=== PATIENT | female | born 1950 | race Caucasian/White ===

== ENCOUNTER 2023-06-29 20:25 | Emergency (ER) | payer OTHER, SELFPAY ==
[2023-06-29 20:30] VITALS: BP 138/83; PULSE 69; RESP 14; TEMP 36.4; O2SAT 99; BMI 27.0
--- NOTE | 2023-06-29 20:35 | ED_ITS ---
HPI - Abdominal Pain General Time Seen by Provider: 20:35 Date Seen: 06/29/23 Chief Complaint: Abdominal Pain Stated Complaint: Stint removal, extreme pain Time Seen by Provider: 06/29/23 20:35 Source: patient, family and RN notes reviewed Mode of arrival: ambulatory Limitations: no limitations History of Present Illness HPI narrative: 73-year-old female who comes in today after having a stent removed, it sounds like this was in place for ureteral stricture repair. This was removed this morning and the patient signed increased pain this evening along with vomiting. Right lower quadrant and right flank pain. Related Data Home Medications Medication Instructions Recorded Confirmed atorvastatin 20 mg tablet 20 mg PO DAILY 06/29/23 06/29/23 furosemide 20 mg tablet mg PO 06/29/23 metoprolol succinate 25 mg 12.5 mg PO DAILY 06/29/23 06/29/23 tablet,extended release 24 hr omeprazole 20 mg capsule,delayed 20 mg PO 3XD 06/29/23 06/29/23 release potassium chloride 10 mEq meq PO 06/29/23 capsule,extended release rivaroxaban 20 mg tablet (Xarelto) 20 mg PO QPM 06/29/23 06/29/23 Previous Rx's Medication Instructions Recorded cefdinir 300 mg capsule 300 mg PO BID 7 days #14 caps 06/29/23 tamsulosin 0.4 mg capsule (Flomax) 0.4 mg PO DAILY #7 caps 06/29/23 Allergies Allergy/AdvReac Type Severity Reaction Status Date / Time No Known Drug Allergies Allergy Verified 06/29/23 20:28 [facility] Social History Smoking Status: Current every day smoker How often do you have a drink containing alcohol: never AUDIT-C Alcohol total score: 0 Non-prescribed substance use: denies use Exam Narrative: Exam Narrative: General: Well-developed and well-nourished, no acute distress Head: Atraumatic and normocephalic Eyes: Pupils are equal reactive, extraocular motions intact, conjunctiva clear ENT: External nose and ears are normal, posterior pharynx without erythema or exudate Neck: No midline cervical tenderness, full spontaneous range of motion the neck, trachea midline, no adenopathy Heart: Regular rate and rhythm no murmurs or thrills Lungs: Clear to auscultation bilaterally without wheezes or crackles Abdomen: Soft, mild right lower quadrant tenderness, nondistended with active bowel sounds Musculoskeletal: No tenderness, deformity, or edema Neurologic: Awake, alert, and oriented x3, no gross focal neurologic deficits, cranial nerves intact as tested Psych: Mood and affect are appropriate Skin: No rashes Const: Vital Signs, click to edit/add: Vital Signs - 24 hr 06/29/23 20:30 06/29/23 21:53 Temperature 97.5 F L Pulse Rate [Pulse Oximeter] 69 61 Respiratory Rate 14 18 Blood Pressure [Ri ght Upper Arm] 138/83 123/66 Pulse Oximetry 99 96 Oxygen Delivery Me thod Room Air Room Air Course Course ED Course: Patient seen examined, prior records reviewed. Patient with ureteral stent removal today, increased pain and vomiting this evening. No urinary symptoms. Will discuss with urology but this likely represents post stent ureteral spasm, will evaluate for renal failure, sepsis, urinary tract infection. Reevaluation(s) Time of Reevaluation #1: 20:56 Reevaluation #1: Care discussed with Dr. Small, urology who recommends Flomax for spasm, says hydroureter or hydronephrosis after stent removal would not be uncommon and does not recommend specific imaging. Time of Reevaluation #2: 21:44 Reevaluation #2: Labs independently interpreted by me with normal creatinine, reassuring CBC. Urinalysis has not yet been done. CT scan independently interpreted by me demonstrates severe right hydronephrosis but no other acute findings. As discussed with Dr. Small, this is not an unusual finding after surgery and would not be restented or further intervened on. Time of Reevaluation #3: 22:36 Reevaluation #3: Labs independently interpreted by me demonstrate urinalysis with some blood and some white cells although moderate epithelial cells and few bacteria. Rocephin in the emergency department and discharged with Omnicef pending cultures, follow-up with urologist. Vital Signs Vital signs: Initial Vital Signs Temperature 97.5 F L 06/29/23 20:30 Temperature Source Temporal Artery Scan 06/29/23 20:30 Pulse Rate 69 06/29/23 20:30 Pulse Rhythm Regular 06/29/23 20:30 Respiratory Rate 14 06/29/23 20:30 Blood Pressure 138/83 06/29/23 20:30 Blood Pressure Mean 101 06/29/23 20:30 Blood Pressure Position Sitting 06/29/23 20:30 Pulse Oximetry 99 06/29/23 20:30 Oxygen Delivery Method Room Air 06/29/23 20:30 Vital Signs Temperature 97.5 F L 06/29/23 20:30 Pulse Rate 69 06/29/23 20:30 Respiratory Rate 14 06/29/23 20:30 Blood Pressure 138/83 06/29/23 20:30 Pulse Oximetry 99 06/29/23 20:30 Oxygen Delivery Method Room Air 06/29/23 20:30 Temperature 97.5 F L 06/29/23 20:30 Pulse Rate 61 06/29/23 21:53 Respiratory Rate 18 06/29/23 21:53 Blood Pressure 123/66 06/29/23 21:53 Pulse Oximetry 96 06/29/23 21:53 Oxygen Delivery Method Room Air 06/29/23 21:53 MDM - Abdominal Pain Lab Data Labs: Lab Results 06/29/23 06/29/23 Range/Units 20:52 21:06 WBC 7.26 (4.50-11.00) K/uL RBC 4.25 (4.00-5.20) m/uL Hgb 13.0 (12.0-16.0) gm/dL Hct 39.3 (33.0-51.0) % MCV 93 (80-100) fL MCH 31 (26-34) pg MCHC 33 (32-36) gm/dL RDW Coeff of Sam 13.0 (11.5-15.5) % Plt Count 179 (140-440) K/uL Neut % (Auto) 80.5 H (42.0-72.0) % Lymph % (Auto) 12.8 L (20-44) % Garrett % (Auto) 5.8 (0.0-11.0) % Eos % (Auto) 0.6 (0.0-7.0) % Baso % (Auto) 0.3 (0.0-3.0) % Neut # (Auto) 5.80 (1.7-7.0) K/uL Lymph # (Auto) 0.90 (0.90-2.90) K/uL Garrett # (Auto) 0.40 (0.00-0.90) K/UL Eos # (Auto) 0.04 (0.00-0.50) K/uL Baso # (Auto) 0.02 (0.00-0.30) K/uL Abs Immat Gran (auto) 0.00 (0.00-0.30) K/uL Imm/Tot Granulo (auto) 0.0 % Sodium 137 (135-149) mmol/L Potassium 3.8 (3.6-5.1) mmol/L Chloride 104 (96-114) mmol/L Carbon Dioxide 26 (20-32) mmol/L Anion Gap 7 (7-15) mEq/L BUN 18 (7-30) mg/dL Creatinine 1.0 (0.5-1.5) mg/dL Estimated Creat Clear 53.93 Estimated GFR 60 ml/min Glucose 114 (60-115) mg/dL Calcium 10.0 (8.4-10.6) mg/dL Urine Color Yellow (Yellow) Urine Appearance Clear (Clear) Urine pH 5.5 (5.0-8.5) Ur Specific [place] >= 1.030 (1.000-1.030) Urine Protein Negative (Negative) Urine Glucose (UA) Negative (Negative) Urine Ketones Negative (Negative) Urine Blood 2+ A (Negative) Urine Nitrite Negative (Negative) Urine Bilirubin Negative (Negative) Urine Urobilinogen 0.2 (0.2-1.0) Ur Leukocyte Esterase Trace A (Negative) Urine RBC 5-10 A (0-2) Urine WBC 5-10 A (0-5) Ur Squamous Epith Cells Moderate A (None-Few) Urine Bacteria Few A (None) Discharge Plan Discharge Clinical Impression: Acute flank pain, Acute lower UTI, Hydronephrosis of right kidney Patient Disposition: Home, Self-Care Condition: Stable Instructions: Hydronephrosis (ED) Additional Instructions: Call your urologist, Dr. Conrad, in the morning Take antibiotics and Flomax as prescribed, take pain medications as needed Activity Level: Activity as Tolerated Discharge Diet: Regular Prescriptions: New cefdinir 300 mg capsule 300 mg PO BID 7 Days Qty: 14 0RF tamsulosin [Flomax] 0.4 mg capsule 0.4 mg PO DAILY Qty: 7 0RF No Action potassium chloride 10 mEq capsule, extended release PO atorvastatin 20 mg tablet 20 mg PO DAILY omeprazole 20 mg capsule,delayed release(DR/EC) 20 mg PO 3XD furosemide 20 mg tablet PO metoprolol succinate 25 mg tablet extended release 24 hr 12.5 mg PO DAILY Xarelto 20 mg tablet 20 mg PO QPM Follow Up/Referrals: Luci Salter DO [Primary Care Provider] - Stand Alone Forms: [employer] Info Instructions
--- NOTE | 2023-06-29 20:55 | CRLHL7_ITS ---
For Patients: As a result of the Century Cures Act, medical imaging exams and procedure reports are released immediately into your electronic medical record. You may view this report before your referring provider. If you have questions, please contact your health care provider. INDICATION: Flank and right lower quadrant pain, recent urologic stent. TECHNIQUE: CT abdomen and pelvis without contrast. COMPARISON: None. FINDINGS: Limited evaluation of the intra-abdominal solid organs without IV contrast. Lower chest: Unremarkable. Liver: Normal in size and attenuation. No suspicious masses. Gallbladder and bile ducts: Status post cholecystectomy. No abnormal intra or extrahepatic biliary ductal dilatation. Pancreas: Unremarkable. No mass or inflammation. Spleen: Normal in size. No masses. Adrenal glands: Normal in size. No nodules. Kidneys: Severe right hydronephrosis. There is narrowing at the UPJ with near normal caliber right ureter. No definite renal or ureteral stones identified. Left kidney is unremarkable. GI tract: Partial right hemicolectomy. No bowel obstruction. Vasculature: Abdominal aorta is normal in caliber. Moderate to severe calcific atherosclerosis. Lymph nodes: No lymphadenopathy. Peritoneum/Abdominal Wall: Unremarkable. No sign of mass or infiltration. No free air or significant free fluid. Pelvis: Foci of gas in the nondependent portion of the bladder likely iatrogenic catheter insertion. Correlate with history. Uterus is absent. Bones: Diffuse demineralization of the visualized bones. Multilevel degenerative changes throughout the spine. IMPRESSION: Severe right hydronephrosis with narrowing at the right UPJ, likely the site of obstruction. Essentially normal caliber right ureter. Status post cholecystectomy Please note that all CT scans at this facility use dose modulation, iterative reconstruction, and/or weight-based dosing when appropriate to reduce radiation dose to as low as reasonably achievable. Dictated by Manuela Lutz MD @ 06/29/2023 9:36:58 PM (Electronically Signed)
[2023-06-29] MEDS: KETOROLAC 15 MG/ML inj IVP (21:04)
[2023-06-29] MEDS: ONDANSETRON 2 MG/ML inj 4 MG IVP (21:04)
[2023-06-29] MEDS: TAMSULOSIN HCL 0.4 MG CAPSULE PO (21:12)
[2023-06-29 21:14] LABS: Basophils Absolute Auto 0.02 K/uL (0.00-0.30); Basophils Percent Auto 0.3 % (0.0-3.0); Eosinophils Absolute Auto 0.04 K/uL (0.00-0.50); Eosinophils Percent Auto 0.6 % (0.0-7.0); Hematocrit 39.3 % (33.0-51.0); Lymphocytes Percent Auto 12.8 % (20-44); Mean Corpuscular HGB Conc 33 gm/dL (32-36); Mean Corpuscular Hemoglobin 31 pg (26-34); Mean Corpuscular Volume 93 fL (80-100); Monocytes Percent Auto 5.8 % (0.0-11.0); Neutrophils Percent Auto 80.5 % (42.0-72.0); Platelet Count* 179 K/uL (140-440); Red Blood Count 4.25 m/uL (4.00-5.20); White Blood Count* 7.26 K/uL (4.50-11.00)
[2023-06-29 21:20] LABS: Slide Review Reflex No
[2023-06-29 21:25] LABS: Chloride* 104 mmol/L (96-114)
[2023-06-29 21:26] LABS: Potassium* 3.8 mmol/L (3.6-5.1); Sodium* 137 mmol/L (135-149)
[2023-06-29 21:28] LABS: Est. Creatinine Clearance* 53.93; Estimated Glomerular Filt Rate 60 ml/min
[2023-06-29 21:29] LABS: Anion Gap 7 mEq/L (7-15); Blood Urea Nitrogen* 18 mg/dL (7-30); Carbon Dioxide* 26 mmol/L (20-32); Glucose* 114 mg/dL (60-115)
[2023-06-29 21:40] LABS: Appearance Urine Clear (Clear); Bilirubin Urine Negative (Negative); Blood Urine 2+ (Negative); Color Urine Yellow (Yellow); Glucose Urine Negative (Negative); Ketones Urine Negative (Negative); Leukocyte Esterase Urine Trace (Negative); Nitrite Urine Negative (Negative); Protein Urine Negative (Negative); Specific Gravity Urine >= 1.030 (1.000-1.030); Urobilinogen Urine 0.2 (0.2-1.0); pH Urine 5.5 (5.0-8.5)
[2023-06-29 21:53] VITALS: BP 123/66; PULSE 61; RESP 18; O2SAT 96
[2023-06-29 21:58] LABS: Bacteria Urine Few; Squamous Epithelial Cell Urine Moderate (None-Few)
[2023-06-29] MEDS: cefTRIAXone 1 GM in 0.9 % SODIUM CHLORIDE Mini-bag 100 ML IVPB (22:48)
== END 2023-06-29 23:33 | disposition home or self-care (01) ==
PROVIDERS: Emergency Provider Family Medicine; PCP Family Medicine
DX: R10.9 Unspecified abdominal pain (principal); N39.0 Urinary tract infection, site not specified; N13.30 Unspecified hydronephrosis; N20.0 Calculus of kidney
CPT/HCPCS: 36415; 74176; 80048; 81001; 85025; 87086; 87186; 96365; 96375; 99284; 99285; A9270; J0696; J1885; J2405

== ENCOUNTER 2023-12-05 10:02 | Outpatient (CLI) | payer OTHER, SELFPAY ==
--- NOTE | 2023-12-05 11:06 | W.ANESCHARGE ---
Anesthesia Charges Start Date/Time Anesthesia Start Date: 12/05/23 Anesthesia Start Time: 11:33 Stop Date/Time Anesthesia Stop Date: 12/05/23 Anesthesia Stop Time: 12:24 Summary Extremes of Age - Over 70 or under 1: MDA
--- NOTE | 2023-12-05 12:21 | W.ANESCHARGE ---
Anesthesia Charges Start Date/Time Anesthesia Start Date: 12/05/23 Anesthesia Start Time: 11:33 Stop Date/Time Anesthesia Stop Date: 12/05/23 Anesthesia Stop Time: 12:24
== END 2023-12-05 10:03 | disposition home or self-care (01) ==
LOC: OP CLINIC 10:03
PROVIDERS: PCP Family Medicine; Visit Provider Internal Medicine Gastroenterology
DX: Z85.038 Personal history of other malignant neoplasm of large intestine (principal); K63.5 Polyp of colon; K57.30 Diverticulosis of large intestine without perforation or abscess without bleeding; Z98.0 Intestinal bypass and anastomosis status
CPT/HCPCS: 00811; 45380; 45381; 45385; 88305; 99100; J2704

== ENCOUNTER 2024-02-27 10:32 | Outpatient (CLI) | payer OTHER, SELFPAY ==
--- OUTSIDE RECORDS SUMMARY | 2024-02-27 10:38 | XMS_ITS | Clinical Summary ---
Author Organization [facility] Address [address] [place] [address] Care Team Providers Care Interpretive Program Coordinator Name Role Phone Unassigned, Provider Primary Care Provider Unava ilable Source Comments You are receiving this document as you are listed as the primary care provider,follow-up provider, or the patient has been referred to you for consultation.This is in compliance with the Medicare andMedicaid EHR Incentive Program,which states Providers who transition their patient to another setting of careor provider of care or refers their patient to another provider of care shouldprovide summary care record for each transition of care or referral. webtide Medications Medication Sig Dispensed Refills Start Date End Date Status omeprazole (PRILOSEC) 20 MG capsule Take 20 mg by mouth. 05/05/2017 Active multivitamin (THERAGRAN) tablet Take 1 Tab by mouth. 05/05/2017 Active HYDROcodone-acetaminop hen (NORCO) 5-325 MG tablet Take 1 Tab by mouth every 6 hours as needed for Pain. 10 Tab 06/10/2017 Active ibuprofen (MOTRIN) 600 MG tablet Take 1 Tab by mouth every 6 hours as needed for Pain. 30 Tab 1 06/10/2017 Active amoxicillin (AMOXIL) 500 MG capsule Take 1 Cap by mouth three times a day. 21 Cap 06/10/2017 Active HYDROcodone-acetaminop hen (NORCO) 5-325 MG tablet Take 1 Tab by mouth every 6 hours as needed for Pain. 10 Tab 11/07/2017 Active ibuprofen (MOTRIN) 600 MG tablet Take 1 Tab by mouth every 6 hours as needed for Pain. 30 Tab 1 11/07/2017 Active Immunizations Name Administration Dates Next Due Influenza Vaccine (3+years) ([facility]) 009 Social History Tobacco Use Types Packs/Day Years Used Date Smoking Tobacco: Heavy Smoker Cigarettes 1 49 Smokeless Tobacco: Never Comments:12 cigarettes per d ay Alcohol Use Standard Drinks/Week Comments Yes 1 (1 standard drink = 0.6 oz pur e alcohol) once in a blue belcher Sex and Gender Information Value Date Recorded Sex Assigned at Not on file Gender Identity Not on file Sexual Orientation Not on file Last Filed Vital Signs Vital Sign Reading Time Taken Comments Blood Pressure 133/64 11/07/2017 11:59 AM [employer] Pulse 69 11/07/2017 11:59 AM [employer] Temperature - - Respiratory Rate - - Oxygen Saturation 97% 11/07/2017 11:59 AM [employer] Inhaled Oxygen Concentration - - Weight 64.4 kg (142 lb) 06/10/2017 10:21 AM CDT Height 176.5 cm (5' 9.5) 06/10/2017 10:21 AM CD T Body Mass Index 20.67 06/10/2017 10:21 AM CDT Plan of Treatment Health Maintenance Due Date Last Done Comments Colon Cancer Screening Plan Due 1950 Hep C Screening (Preventive Services) 1950 Medicare Welcome Visit 1950 Mammogram 1950 Cholesterol 02/09/1997 Dexa 02/09/2017 COVID-19 Vaccine ( season) 2023 12/26/2020, 12/05/2020 Influenza (Season Ended) 2024 020, 10/18/2019, 06/02/2018, Additional history exists DTaP/Tdap/Td (2 - Tdap) 08/01/2027 08/01/2017 Pneumococcal 65+ Yrs Completed 06/02/2018, 05/05/20 17 Zoster/Shingles Completed 07/26/2019, 05/11/2019 HepA Aged Out No longer eligi ble based on patient's age to complete this topic HepB Aged Out No longer eligi ble based on patient's age to complete this topic Hib Aged Out No longer eligi ble based on patient's age to complete this topic IPV (Polio) Aged Out No longer eligi ble based on patient's age to complete this topic MCV4 Aged Out No longer eligi ble based on patient's age to complete this topic Care Teams Interpretive Program Coordinator Relationship Specialty Start Date End Date Unassigned, Provider [address] [place] [address] PCP - General 08/28/09
--- OUTSIDE RECORDS SUMMARY | 2024-02-27 10:38 | XMS_ITS | Clinical Summary ---
Author Organization [facility] Address [place], [place] [address] Care Team Providers Care Rehabilitation Case Coordinator Name Role Phone Luci Salter Primary Care Provider Aleksey Lezama MD Unavailable [phone] Saranya Mar Unavailable [phone] Allergies No known active allergies Medications Medication Sig Dispensed Refills Start Date End Date Status omeprazole (PRILOSEC) 20 mg Delayed-Release capsuleIndications: PUD (peptic ulcer disease),Gastroesop hageal reflux disease, unspecified whether esophagitis present Take 1 Capsule (20 mg) by mouth once daily before a meal. 90 Capsule 3 04/06/2023 Active furosemide (LASIX) 20 mg tabletIndications:A cute systolic congestive heart failure (HC) Take 1 Tablet (20 mg) by mouth every morning. May also take 1 Tablet (20 mg) once daily if needed (leg swelling or congestion). 90 Tablet 3 09/05/2023 Active potassium chloride (MICRO-K) 10 mEq Controlled-release capsuleIndications: On potassium wasting diuretic therapy Take 2 Capsules (20 mEq) by mouth once daily with a meal. 180 Capsule 3 09/05/2023 Active rivaroxaban (Xarelto) 20 mg tabletIndications:N ew onset a-fib (HC) TAKE 1 TABLET (20 MG) BY MOUTH ONCE DAILY WITH EVENING MEAL. Strength: 20 mg 90 Tablet 3 09/05/2023 Active atorvastatin (LIPITOR) 20 mg tabletIndications:C oronary artery calcification TAKE 1 TABLET BY MOUTH EVERY DAY 90 Tablet 2 08/14/2023 Active umeclidinium-vilant Gertrude (Anoro Ellipta) 62.5-25 mcg/actuation inhalerIndications: Chronic obstructive pulmonary disease, unspecified COPD type (HC) Inhale 1 Puff by mouth once daily. Discard inhaler 6 weeks after opening or when the counter reads '0' (after all blisters have been used), whichever comes first. 60 Each 10/27/2023 Active albuterol HFA (PRO-AIR; VENTOLIN; PROVENTIL) 90 mcg/actuation inhalerIndications: Chronic obstructive pulmonary disease, unspecified COPD type (HC) Inhale 2 Puffs by mouth every 4 hours if needed for Shortness of Breath 1st choice. 1 Each 11 10/27/2023 Active multivit with iron,minerals (MULTIVITAMIN AND MINERALS ORAL) Take by mouth. Active escitalopram oxalate (LEXAPRO) 10 mg tabletIndications:A djustment reaction with anxiety and depression Take 1 Tablet (10 mg) by mouth every morning. 90 Tablet 12/22/2023 Active atorvastatin (LIPITOR) 20 mg tablet Take by mouth. 06/29/2023 Active metoprolol succinate (Toprol XL) 25 mg Sustained-Release tabletIndications:T achycardia-induced cardiomyopathy (HC),Paroxysmal atrial fibrillation (HC) Take 0.5 Tablets (12.5 mg) by mouth once daily. 45 Tablet 3 09/05/2023 4 Discontinue d(*Med complete/Re gimen complete/Le cathy of care change) Active Problems Problem Noted Date Diagnosed Date Hydronephrosis of right kidney 11/25/2022 Fatty liver 11/25/2022 Chronic obstructive pulmonary disease 10/11/2022 Congestive heart failure 01/25/2022 Postprocedural pneumothorax 09/05/2021 Pleural effusion on left 09/04/2021 Atrial fibrillation 09/03/2021 Acute systolic congestive heart failure 09/03/20 21 New onset a-fib 08/10/2021 Dyslipidemia 08/10/2021 Malignant neoplasm of colon 10/08/2020 Overview: S/p Laparoscopic Colectomy Right With Anastomosis on 09/03/2020 for Malignant Neoplasm Of Colon (HCC). Surgeon: Dr. Jesús Dooley MD at [place]. Recommended to repeat colonoscopy in 1 year and if negative, colonoscopy 3 years after that. History of colon cancer, stage I 10/08/2020 Gastroesophageal reflux disease without esophagi tis 08/14/2020 Hyperlipidemia 08/14/2020 Malignant neoplasm of transverse colon 0 Overview: Colonoscopy 07/25/2020 colon cancer arising within a serrated adenoma, multiple polyps, recommend surgery, colonoscopy 1 year after surgery Colonoscopy hyperplastic rectal polyp, no residual precancerous polyp in the rectum, ischemic colitis in the descending colon, severe diverticular disease, tattoos placed at the previously resected polyp in the transverse colon as well as the rectal polyp area, patient will be referred to [facility] colorectal surgery for further care and probable surgery, follow-up colonoscopy pending [facility] review Colonoscopy 11/2023 Large SSA, TA, repeat in 3 years Hyperopia of both eyes with astigmatism and pres byopia 05/17/2019 Nuclear senile cataract of both eyes 05/17/2019 Coronary artery calcification 05/14/2019 PUD (peptic ulcer disease) 05/14/2019 Pulmonary nodules/lesions, multiple 08/16/2018 Tobacco abuse 08/16/2018 Osteopenia of multiple sites 06/08/2017 Overview: DEXA 06/26/20. T-scores AP: -1.5, LFN -0.9, RFN -1.3. FRAX 14.2%. Recommend basic bone health and repeat in 3-5 years. DEXA 05/24/23: T-scores AP: -0.5, LFN -1.1, RFN -1.7. FRAX 17.4, 4.6%. Recommend basic bone health and repeat in 3-5 years. 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 Chris Sandoval at [facility]) 02/23/2024 3:00 PM CDT Office Visit [facility] [address] [place] [address] Chris Sandoval MD Consult (Diarrhea continues, anti-diarrheal helpful, smelly burps) 02/23/2024 Travel 02/18/2024 Travel 01/23/2024 2:00 PM CDT Ancillary Procedure [facility] [address] [place] [id number] 01/23/2024 Telephone [facility] [address] [place] [address] Bigg Crain MD Results 01/23/2024 Travel 01/17/2024 Telephone [facility] [address] [place] [address] Bigg Crain MD Results 01/16/2024 3:25 PM CDT Office Visit [facility] [address] [place] [address] Bigg Crain MD Dizziness (Seems to be happening more frequently but nothing certain brings it on.); Diarrhea (equipment operator intermodal yard issues) 01/16/2024 Travel 01/13/2024 Travel 12/26/2023 1:15 PM CDT Orders Only [facility] [address] [place] [address] Lab, [facility] 12/22/2023 10:50 AM CDT Office Visit [facility] [address] [place] [address] Luci Salter DO Diarrhea (Over a month); Dizziness (When going from sitting to standing quickly) 12/21/2023 Travel 12/06/2023 Telephone [facility] [address] [place] [address] Chris Sandoval MD Questions (Regarding Metal card) 12/05/2023 10:15 AM CDT Office Visit [facility] [address] [place] [address] Chris Sandoval MD 12/05/2023 Orders Only [facility] Scanner 1 scan: (1-Ord) DOSWELL 12/05/2023 Lab Requisition [facility] [phone] Chris Sandoval MD 12/01/2023 3:00 PM JET INSPECTOR Preop Visit [facility] [address] [place] [address] Luci Salter DO Preoperative Exam 11/30/2023 Travel 11/29/2023 Telephone [facility] [address] [place] [address] Chris Sandoval MD Appointment 11/29/2023 Telephone [facility] [address] [place] [address] Chris Sandoval MD Medication Management 11/28/2023 Refill [facility] [address] [place] [address] Chris Sandoval MD Refill Request ( polyethylene glycol-electrolyte and Zofran to be sent to her preferred pharmacy at [facility] in [place].) 11/27/2023 Travel from Last 3 Months Immunizations Name Administration Dates Next Due AMB Influenza, IIV3 (Age >=3 years)(Flu Clinic Only) 07/04/2012,07/14/2010,07/26/2008 COVID-19 vaccine (Cytonics-Bio NTech 30mcg/0.3mL) 12YO+ BIVALENT PF, MDV 06/29/2022 COVID-19 vaccine (Pfizer-Bio NTech 30mcg/0.3mL) 12YO+ MARYAM-SUCROSE PF, MDV 04/23/2022 COVID-19 vaccine (Cytonics-Bio NTech 30mcg/0.3mL) PF, MDV 12/26/2020,12/05/2020 Influenza Virus, Unspecified 09/03/2009 Influenza, High-dose Inactivated 08/01/2017 Influenza, IIV3 (Age >=3 years) 08/21/2014 Influenza, IIV4 06/04/2016 Influenza, Inactivated AIIV4 (Age 65+ Years) Preserv Free 07/14/2023,06/24/2022,06/11/2021,06/05 Influenza, Inactivated IIV3 (Age 65+ Years) Preserv Free 10/18/2019,06/02/2018 Pneumococcal Poly,23-Valent (Pneumovax) 06/02/2018 Pneumococcal conj 13-Valent (Prevnar 13) 05/05/2017 RSV, Bivalent Vaccine Recons tituted (Abrysvo 120MCG/0.5mL) 08/04/2023 Tdap 08/01/2017 Zoster (Shingrix-RZV, recombinant) 07/26/2019, Family History Medical History Relation Name Comments Cancer-colon Brother Mauro Diabetes Daughter Cancer Father lung Heart attack Father Cancer-colon Sister 1 61. diagnosed.n Other Sister 1 MSA Cancer-breast No Family History Relation Name Status Comments Brother Mauro (Age 70) colon canc er Daughter Father Mother Sister 1 Sister 2 Christiane (Age 61) [facility] Social History Tobacco Use Types Packs/Day Years Used Date Smoking Tobacco: Every Day Cigarettes 0.7 54.4 Started: [birth year]/26/1969 Passive Smoke Exposure: Never Smokeless Tobacco: Never Tobacco Cessation:Ready to Q uit: No; Counseling Given: No Alcohol Use Standard Drinks/Week Comments Not Currently 0 (1 standard drink = 0.6 oz pur e alcohol) Very rare PHQ-2 Answer Date Recorded PHQ-2 TOTAL SCORE 0 11/07/2023 Social Connections Answer Date Recorded Frequency of Communication with Friends and Fami ly 0 05/27/2023 Financial Resource Strain Answer Date R ecorded Difficulty of Paying Living Expenses 3 05/27/2023 Difficulty of Paying Living Expenses Not on file 05/27/2023 Food Insecurity Answer Date Recorded Worried About Running Out of Food in the Last Ye ar 1 05/27/2023 Transportation Needs Answer Date Record ed Lack of Transportation (Medical) 1 05/27/2023 Housing Stability Answer Date Recorded Unable to Pay for Housing in the Last Year 1 05/27/2023 Sex and Gender Information Value Date Recorded Sex Assigned at Female 10/07/2020 9:06 AM JET INSPECTOR Gender Identity Female 10/07/2020 9:06 AM JET INSPECTOR Sexual Orientation Straight 10/07/2020 9: 06 AM JET INSPECTOR Obstetrics History Last Filed Vital Signs Vital Sign Reading Time Taken Comments Blood Pressure 112/68 02/24/2024 8:53 AM CDT Pulse 68 02/24/2024 8:53 AM CDT Temperature 36.8 ??C (98.3 ??F) 12/22/2023 1 0:52 AM CDT Respiratory Rate 22 10/27/2023 1:05 PM JET INSPECTOR Oxygen Saturation 97% 02/23/2024 2:5 9 PM CDT Inhaled Oxygen Concentration - - Weight 81.8 kg (180 lb 6.4 oz) 02/24/20 8:53 AM CDT with shoes Height 172.7 cm (5' 8) 02/24/2024 8:53 AM CDT Body Mass Index 27.43 02/24/2024 8:53 AM CDT Plan of Treatment Upcoming Encounters Date Type Department Care Team (Late st Contact Info) Description 02/27/2024 10:45 AM CDT Office Visit [facility] [address] [place] [address] Chris Sandoval MD [address] [place] [address] Arrived Health Maintenance Due Date Last Done Comments COVID-19 vaccine series ( season) 2023 07/21/2023, 06/29/2022, 04/23/2022, Additional history exists Medicare Wellness for age 65+ 04/06/2024, 04/05/2022, 03/27/2021, Additional history exists Low Dose CT (for lung CA) ag e 50-80 05/24/2024 05/24/2023, 03/04/2022, 09/03/2021, Additional history exists Mammogram for age 45-75 05/24/2024 05/24/20 23, 05/13/2022, 04/01/2021, Additional history exists Influenza for age 65+ 05/27/2024 07/14/2023 , 06/24/2022, 06/11/2021, Additional history exists Depression screening for age 12+ 11/09/2024 11/09/2023, 11/07/2023, 10/07/2023, Additional history exists BMI (ht and wt on same day) for age 18+ 02/23/2025 02/24/2024, 12/01/2023, 10/27/2023, Additional history exists Colonoscopy through age 75 12/04/202612/04, 12/05/2023, 12/05/2023, Additional history exists Tetanus booster 08/01/2027 08/01/2017 Lipids for age 45-75 04/06/2028 04/06/2023, 04/05/2022, 03/27/2021, Additional history exists Tdap Completed 08/01/2017 Pneumococcal series for age 65+ Completed 8, 05/05/2017 Hepatitis C screening for ag e 18-79 Completed 05/14/2019 Zoster (shingles) series for age 50+ Completed 07/26/2019, 05/11/2019 DEXA/DXA scan for age 65+ Completed 2022, 06/26/2020, 06/02/2017 Medical Devices Implanted Type Area Instructional Technology Director Device Identifier Shelf Expiration Date Model / Serial / Lot Stent Uret 6fr 24cm [employer] [place] W/O Guidewire - [id number] Implanted:Qty: 1 on 06/06/2023 by Ron Conrad MD at [facility] Right: [employer] 03/30/2024 [facility] / [id number] Procedures Procedure Name Priority Date/Time Associated Diagnosis Comments ESOPHAGOGASTRODUODENOSCOPY Routine 02/26 8:03 AM CDT Belching Chronic diarrhea History of gastric ulcer POTASSIUM Routine 02/24/2024 9:27 AM CDT Hypokalemia US CAROTID DUPLEX BILATERAL Routine 12/26 2:28 PM CDT Dizziness BASIC METABOLIC PANEL Routine 01/16/2024 4:19 PM CDT Dizziness [facility] 84 Routine 12/26/2023 11:15 AM CDT Chronic diarrhea TISSUE TRANSGLUTAMINASE IGA Routine 11/25 11:38 AM CDT Chronic diarrhea TSH WITH REFLEX Routine 12/22/2023 11:38 AM CDT Chronic diarrhea Generalized anxiety disorder CELIAC CASCADE PANEL Routine 12/22/2023 11:38 AM CDT Chronic diarrhea LAB TRACKING EVENT Routine 12/05/2023 12:00 PM CDT PATH TISSUE EXAM Routine 12/05/2023 12:00 PM CDT COLONOSCOPY SCREENING Routine 12/05/2023 8:07 AM CDT History of colon cancer Diarrhea, unspecified type SCAN-COLONOSCOPY 12/05/2023 12:[address] CHEST SCREENING LOW DOSE WO CONTRAST Routine 05/24/2023 12:10 PM CDT Encounter for screening for lung cancer Smoker XR MAMMO YVON BILAT SCREEN Routine 05/24 11:39 AM CDT Visit for screening mammogram XR DXA BONE DENSITY 2 SITES AXIAL Routine 05/24/2023 11:26 AM CDT Osteopenia of multiple sites LIPID PANEL W REFLEX MEASURE D LDL Routine 04/06/2023 12:33 PM CDT Dyslipidemia ANTI HCV Routine 05/14/2019 3:02 PM CDT Need for hepatitis C screening test from Last 3 Months or Most Recently Relevant to Health Maintenance Results * POTASSIUM (02/24/2024 9:27 AM CDT) POTASSIUM 4.8 3.5 - 5.1 mmol/L 02/24/2024 2:30 PM CDT [facility] Blood BLOOD SPECIMEN / Unknown Venipuncture / Unknown 02/24/2024 9:27 AM CDT 02/24/2024 9:27 AM CDT Alexander Johns MD CHEMISTRY [facility] [address] [place] [address], * US CAROTID DUPLEX BILATERAL (01/23/2024 2:28 PM CDT) Anatomical Region Laterality Modality CAROTID, NECK Ultrasound 01/23/2024 2:28 PM CDT Impressions 01/23/2024 2:32 PM CDT 1. ??Moderate plaque formation, velocities consistent with less than 50% stenosis in the right internal carotid artery. 2. ??Moderate plaque formation, velocities consistent with less than 50% stenosis in the left internal carotid artery. 3. ??Flow within the vertebral arteries is antegrade. Narrative 01/23/2024 2:32 PM CDT For Patients: As a result of the Century Cures Act, medical imaging exams and procedure reports are released immediately into your electronic medical record. You may view this report before your referring provider. If you have questions, please contact your health care provider. EXAM: US CAROTID DUPLEX BILATERAL LOCATION: [facility] DATE: 01/23/2024 INDICATION: Dizziness COMPARISON: None. TECHNIQUE: Duplex exam performed utilizing 2D story-scale imaging, Doppler interrogation with color-flow and spectral waveform analysis. The percent diameter stenosis is determined using NASCET criteria and Society of Radiologists in Ultrasound Consensus Criteria. FINDINGS: RIGHT: Moderate plaque at the bifurcation. The peak systolic velocity in the ICA is less than 130 cm/sec, consistent with less than 50% stenosis. Normal velocities in the ECA. Antegrade flow within the vertebral artery. Normal multiphasic waveforms in the subclavian artery. LEFT: Moderate plaque at the bifurcation. The peak systolic velocity in the ICA is less than 130 cm/sec, consistent with less than 50% stenosis. Normal velocities in the ECA. Antegrade flow within the vertebral artery. Normal multiphasic waveforms in the subclavian artery. VELOCITY CHART: CCA ?? Right: 65/19 cm/s ?? Left: 65/20 cm/s ICA ?? Right: 127/33 cm/s ?? Left: 73/24 cm/s ECA ?? Right: 143/23 cm/s ?? Left: 85 cm/s ICA/CCA PSV Ratio ?? Right: 1 ?? Left: 1.1 Procedure Note Ronel Olivera MD - 01/23/2024 For Patients: As a result of the Cures Act, medical imagingexams and procedure reports are released immediately into your electronicmedical record. You may view this report before your referring provider.If you have questions, please contact your health care provider. EXAM: US CAROTID DUPLEX BILATERAL LOCATION: [facility] DATE: 01/23/2024 INDICATION: Dizziness COMPARISON: None. TECHNIQUE: Duplex exam performed utilizing 2D story-scale imaging, Dopplerinterrogation with color-flow and spectral waveform analysis. The percentdiameter stenosis is determined using NASCET criteria and Society ofRadiologists in Ultrasound Consensus Criteria. FINDINGS: RIGHT: Moderate plaque at the bifurcation. The peak systolic velocity inthe ICA is less than 130 cm/sec, consistent with less than 50% stenosis.Normal velocities in the ECA. Antegrade flow within the vertebral artery.Normal multiphasic waveforms in the subclavian artery. LEFT: Moderate plaque at the bifurcation. The peak systolic velocity inthe ICA is less than 130 cm/sec, consistent with less than 50% stenosis.Normal velocities in the ECA. Antegrade flow within the vertebral artery.Normal multiphasic waveforms in the subclavian artery. VELOCITY CHART: CCA Right: 65/19 cm/s Left: 65/20 cm/s ICA Right: 127/33 cm/s Left: 73/24 cm/s ECA Right: 143/23 cm/s Left: 85 cm/s ICA/CCA PSV Ratio Right: 1 Left: 1.1 IMPRESSION: 1. Moderate plaque formation, velocities consistent with less than 50%stenosis in the right internal carotid artery. 2. Moderate plaque formation, velocities consistent with less than 50%stenosis in the left internal carotid artery. 3. Flow within the vertebral arteries is antegrade. Bigg Crain MD US * (ABNORMAL) BASIC METABOLIC PANEL (01/16/2024 4:19 PM CDT) SODIUM 135(L) 136 - 145 mmol/L 01/17/2024 3:31 AM T [facility] POTASSIUM 4.9 3.5 - 5.1 mmol/L 01/17/2024 3:31 AM T [facility] CHLORIDE 101 98 - 107 mmol/L 01/17/2024 3:31 AM [facility] CO2,TOTAL 26 22 - 29 mmol/L 01/17/2024 3:31 AM [facility] ANION GAP 8 5 - 18 01/17/2024 3:31 AM T [facility] GLUCOSE 79 70 - 99 mg/dL 01/17/2024 3:31 AM [facility] CALCIUM 10.4(H) 8.8 - 10.2 mg/dL 01/17/2024 3:31 AM [facility] BUN 8 8 - 23 mg/dL 01/17/2024 3:31 AM [facility] CREATININE 0.93(H) 0.50 - 0.90 mg/dL 01/17/2024 3:31 AM [facility] BUN/CREAT RATIO 9(L) 10 - 20 3:31 AM [facility] eGFR 66(L) >90 mL/min/1.7 3m2 01/17/2024 3:31 AM [facility] Comment:As of 2021, eG FR is calculated by the CKD-EPI creatinine equation without race adjustment. ??eGFR can be influenced by muscle mass, exercise, and diet. ??The reported eGFR is an estimation only and is only applicable if the renal function is stable. Blood BLOOD SPECIMEN / Unknown Venipuncture / Unknown 01/16/2024 4:19 PM CDT 01/16/2024 4:19 PM CDT Bigg Crain MD CHEMISTRY Performing Organization Address [facility] Co de Phone Number [facility] [address] [address], * PANCREATIC ELASTASE FECAL (12/26/2023 11:15 AM CDT) Pancreatic Elast Fecal 482 >200 ug Elast./g 01/02/2024 3:[address] [facility] Comment: ? Severe Pancreatic Insufficiency: ?<100 ? Moderate Pancreatic Insufficiency: ?? 100 - 200 ? Normal: ? >200 Stool STOOL SPECIMEN / Unknown Non-Blood / Unknown 12/26/2023 11:15 AM CDT 12/26/2023 11:52 AM CDT Narrative [facility] ([facility]) - 01/02/2024 3:06 AM CDT Performed at: ??[address] ??[id number] Pipe Bowls Paint Trimmer: Henrik Tong MD, Phone: ??[phone] Luci Salter DO MICROBIOLOGY Performing Organization Address [facility] Co de Phone Number [facility] ([facility]) [address] [place] [id number], * CELIAC CASCADE PANEL (12/22/2023 11:38 AM CDT) IGA 443.56 84.50 - 499.00 mg/dL 12/23/2023 7:47 AM CDT [facility] Blood BLOOD SPECIMEN / Unknown Venipuncture / Unknown 12/22/2023 11:38 AM CDT 12/22/2023 11:38 AM CDT Narrative [facility] - 12/23/2023 7:47 AM CDT Reflexed to Tissue Transglutaminase IgA Luci Salter DO SEND OUTS Performing Organization Address [facility]/ZIP Co de Phone Number [facility] [address] [place] [address], * TSH WITH REFLEX (12/22/2023 11:38 AM CDT) TSH 0.88 0.27 - 4.20 uIU/mL 12/22/2023 6:16 PM CDT [facility] Blood BLOOD SPECIMEN / Unknown Venipuncture / Unknown 12/22/2023 11:38 AM CDT 12/22/2023 11:38 AM CDT Narrative [facility] - 12/22/2023 6:16 PM CDT In Adults, TSH values between 5.00 and 10.00 uIU/ml do not necessarily indicate the presence of Hypothyroidism. Correlation with clinical findings such as presence of goiter and/or Thyroperoxidase (TPO) Antibody may be helpful. For more information please refer to ZEYAD 2004; 291: 228-238. Luci Salter DO CHEMISTRY Performing Organization Address [facility] Co de Phone Number [facility] [address] [place] [address], [place] * TISSUE TRANSGLUTAMINASE IGA (12/22/2023 11:38 AM CDT) TISSUE TRANSGLUTAMINASE IGA 1.3 <4.0 U/ml 12/23/2023 12:14 PM CDT [facility] Comment:Celiac disease unlik keon unless IgA deficient. Recommend IgA levels if not already performed. Blood BLOOD SPECIMEN / Unknown Venipuncture / Unknown 12/22/2023 11:38 AM CDT 12/22/2023 11:38 AM CDT Narrative [facility] - 12/23/2023 12:14 PM CDT Negative ?<4.0 Weak Positive ?? 4-10 Positive ?>10.0 This test should not be solely relied upon to establish a diagnosis of celiac disease. Affected individuals who have been on a gluten-free diet prior to testing may have a negative result. These results were obtained using the NewCella Lite R h-tTG IgA LESLIE assay. ??Values obtained from other manufacturers' assay methods may not be used interchangeably. Luci Salter DO SEND OUTS Performing Organization Address [facility] Co de Phone Number [facility] [address] [place] [address], * LAB TRACKING EVENT (12/05/2023 12:00 PM CDT) Other (Other) Client Collect / Unknown 12/05/2023 12:00 PM CDT 12/05/2023 9:44 PM CDT Chris Sandoval MD LAB BILL ONLY Performing Organization Address [facility] Co de Phone Number [facility] [address] [place] [address], * PATH TISSUE EXAM (12/05/2023 12:00 PM CDT) Case Report Pathology Report ?Case: [id number] ? Authorizing Provider: ??Chris Sandoval MD ?? Collected: ? 12/05/2023 1200 ? [facility] ? [facility] [facility] ?Received: ?12/06/2023 0856 ? Pathologist: ? Douglas Mcintosh, ? MD ? Specimens: ?? A) - Transverse Colon Polyp ? B) - Transverse Colon Polyp ? C) - Colon Biopsy ? 12/07/2023 3:45 PM CDT [facility] ENTRAL LABORATORY Final Diagnosis A) COLON, TRANSVERSE, POLYPECTOMIES: 1. Tubular adenoma (1) and normal colonic mucosa (clinically, 2 polyps) 2. Negative for high grade dysplasia 3. Per the colonoscopy report: ?? a. Polyp sizes: 3 mm ?? b. Resection: Complete ?? c. Retrieval: Complete B) COLON, TRANSVERSE, POLYPECTOMY: 1. Sessile serrated adenoma 2. Negative for overt dysplasia 3. Per the colonoscopy report: ?? a. Polyp size: 15 mm ?? b. Resection: Complete ?? c. Retrieval: Complete C) COLON, RANDOM, BIOPSY: 1. Normal colonic mucosa 2. Negative for microscopic, active, and chronic colitis 3. Minute portion of hyperplastic polyp is identified 12/07/2023 3:45 PM CDT [facility] Clinical Information Ms. Reyna is a 73 y.o. undergoing high risk colon cancer surveillance due to a personal history of colon cancer. Incidental diarrhea is also noted. 12/07/2023 3:45 PM CDT [facility] Gross Description A) Received in formalin are 2 joseph mucosal fragments averaging 4 mm in greatest dimension, which are entirely submitted in one cassette. It is labeled with the patient's name and designated colon-transver se, 3 mm. B) Received in formalin are 12 joseph mucosal fragments ranging from 2 mm to 10 mm in greatest dimension. ??The largest fragment has an identifiable base which is inked. ??The specimen is entirely submitted in 3 cassettes (inked and sectioned fragment in cassette 3). It is labeled with the patient's name and designated colon-transver se, 15 mm. C) Received in formalin are 7 joseph mucosal fragments ranging from 3 mm to 5 mm in greatest dimension, which are entirely submitted in one cassette. It is labeled with the patient's name and designated random colon. Natalia Dominguez 12/06/2023 9:53 AM 12/07/2023 3:45 PM CDT [facility] Microscopic Description The final diagnosis is based on microscopic examination of appropriate sections of all specimens. 12/07/2023 3:45 PM CDT [facility] EN[facility]AL [facility]ORAT[facility] Additional Information Interpreted at [facility], Central Laboratory - [address] [facility] [address] [address] 12/07/2023 3:45 PM CDT [facility] Other (Transverse Colon Polyp) 12/05/2023 12:00 PM CDT 12/06/2023 8:56 AM CDT Specimen (specimen) (Transverse Colon Polyp) 12/05/2023 12:00 PM CDT 12/06/2023 8:56 AM CDT Specimen (specimen) (Colon Biopsy) 12/05/2023 12:00 PM CDT 12/06/2023 8:56 AM CDT Chris Sandoval MD PATHOLOGY/CYTOLOG Y [facility]-CENTRAL LABORATORY [address] [place] [address], [place] * SCAN-COLONOSCOPY (12/05/2023 12:00 AM CDT) Scanner OTHER * CT CHEST SCREENING LOW DOSE WO CONTRAST (05/24/2023 12:10 PM CDT) Anatomical Region Laterality Modality Computed Tomogra phy 05/24/2023 12:1 0 PM CDT Impressions 05/24/2023 2:31 PM CDT 1. ??Negative for lung cancer screening purposes. 2. ??Stable versus slightly increasing conspicuity of a 6 mm subpleural lingular nodule. 3. ??Mosaic attenuation of the lung parenchyma suggests small airway/vessel disease. LungRADS CATEGORY: 2 - Benign appearance or behavior (<1% risk of malignancy) -Perifissural nodules(s): <10 mm -Solid nodule(s): <6 mm on baseline screening; or new nodule <4 mm -Subsolid nodule(s): <6 mm on baseline screening -Ground glass nodule(s): <30 mm; or greater than or equal to 30 mm and unchanged or slowly growing - Category 3 or 4 nodules that are unchanged for greater than or equal to 3 months RADIOLOGIST RECOMMENDATION: Continue annual screening with low-dose CT chest in 12 months. Narrative 05/24/2023 2:31 PM CDT For Patients: As a result of the Century Cures Act, medical imaging exams and procedure reports are released immediately into your electronic medical record. You may view this report before your referring provider. If you have questions, please contact your health care provider. EXAM: LOW DOSE LUNG CANCER SCREENING CT CHEST LOCATION: [facility] DATE: 05/24/2023 INDICATION: Lung cancer screening. History of smoking. High risk patient. COMPARISON: 03/04/2022 TECHNIQUE: Low-dose lung cancer screening non-contrast CT chest. Dose reduction techniques were used. FINDINGS: NODULES: Stable to slightly increasing conspicuity of a 6 x 5 mm subpleural lingular nodule (series 3, image 232). Otherwise, there are unchanged scattered micronodules and calcified granulomas in the right lung apex and left lower lobe. LUNGS AND PLEURA: Mild tracheal secretions. Mild biapical pleural-parenchymal thickening and centrilobular emphysematous changes. No pneumonic consolidation, pleural effusion, or pneumothorax. Mosaic lung attenuation, most pronounced in the lung bases. MEDIASTINUM: Thoracic aorta atherosclerosis without aneurysmal dilation. No thoracic lymphadenopathy. Normal esophagus and thyroid gland. CORONARY ARTERY CALCIFICATION: Moderate. LIMITED UPPER ABDOMEN: Cholecystectomy. MUSCULOSKELETAL: Unchanged chronic mild T12 compression performed. No aggressive osseous lesion. Procedure Note Farhad Villasenor MD - 05/24/2023 For Patients: As a result of the Cures Act, medical imagingexams and procedure reports are released immediately into your electronicmedical record. You may view this report before your referring provider.If you have questions, please contact your health care provider. EXAM: LOW DOSE LUNG CANCER SCREENING CT CHEST LOCATION: [facility] DATE: 05/24/2023 INDICATION: Lung cancer screening. History of smoking. High riskpatient. COMPARISON: 03/04/2022 TECHNIQUE: Low-dose lung cancer screening non-contrast CT chest. Dosereduction techniques were used. FINDINGS: NODULES: Stable to slightly increasing conspicuity of a 6 x 5 mmsubpleural lingular nodule (series 3, image 232). Otherwise, there areunchanged scattered micronodules and calcified granulomas in the rightlung apex and left lower lobe. LUNGS AND PLEURA: Mild tracheal secretions. Mild biapicalpleural-parenchymal thickening and centrilobular emphysematous changes. Nopneumonic consolidation, pleural effusion, or pneumothorax. Mosaic lungattenuation, most pronounced in the lung bases. MEDIASTINUM: Thoracic aorta atherosclerosis without aneurysmal dilation.No thoracic lymphadenopathy. Normal esophagus and thyroid gland. CORONARY ARTERY CALCIFICATION: Moderate. LIMITED UPPER ABDOMEN: Cholecystectomy. MUSCULOSKELETAL: Unchanged chronic mild T12 compression performed. Noaggressive osseous lesion. IMPRESSION: 1. Negative for lung cancer screening purposes. 2. Stable versus slightly increasing conspicuity of a 6 mm subpleurallingular nodule. 3. Mosaic attenuation of the lung parenchyma suggests small airway/vesseldisease. LungRADS CATEGORY: 2 - Benign appearance or behavior (<1% risk ofmalignancy) -Perifissural nodules(s): <10 mm -Solid nodule(s): <6 mm onbaseline screening; or new nodule <4 mm -Subsolid nodule(s): <6 mm onbaseline screening -Ground glass nodule(s): <30 mm; or greater than orequal to 30 mm and unchanged or slowly growing - Category 3 or 4 nodulesthat are unchanged for greater than or equal to 3 months RADIOLOGIST RECOMMENDATION: Continue annual screening with low-dose CTchest in 12 months. Luci Sue Gaetano DO CT * XR MAMMO YVON BILAT SCREEN (05/24/2023 11:39 AM CDT) Anatomical Region Laterality Modality BREASTS, Breast Left, Breast Right Bilateral Mammography Impressions 05/25/2023 12:57 PM CDT ??There is no radiographic evidence for malignancy. ??Recommend annual mammograms. MAMMOGRAM ASSESSMENT: ??ACR 1 Negative PATIENTS: You will also receive a letter with your examination results in an easy to read format. ??If you have questions about your results, please contact your referring provider. Narrative 05/25/2023 12:57 PM CDT For Patients: As a result of the 21st Century Cures Act, medical imaging exams and procedure reports are released immediately into your electronic medical record. You may view this report before your referring provider. If you have questions, please contact your health care provider. XR MAMMO YVON BILAT SCREEN [[id number]] CLINICAL HISTORY: ??This is an asymptomatic 73 y.o. patient. INDICATION FOR EXAM: Mammogram Screening. TECHNIQUE: CC & MLO views were obtained. ??This study was evaluated with the assistance of Computer-Aided Detection. Breast Tomosynthesis was used in interpretation. COMPARISON FILM: Yes 05/13/22 [place] 03/19/21 [facility] FINDINGS: ??The breasts have scattered areas of fibroglandular density. There are no dominant masses, suspicious micro calcifications or areas of architectural distortion. Luci Salter DO MAMMO * XR DXA BONE DENSITY 2 SITES AXIAL (05/24/2023 11:26 AM CDT) Anatomical Region Laterality Modality Spine, HIPS, HIPL, HIPR Computed Radiography 05/24/2023 11:2 6 AM CDT Impressions 05/24/2023 1:33 PM CDT Low bone density (OSTEOPENIA). T score meets the WHO criteria for low bone density (osteopenia) at one or more measured sites. The risk of osteoporotic fracture increases approximately two-fold for each standard deviation decrease in T-score. Narrative 05/24/2023 1:33 PM CDT For Patients: As a result of the Cures Act, medical imaging exams and procedure reports are released immediately into your electronic medical record. You may view this report before your referring provider. If you have questions, please contact your health care provider. EXAM: XR DXA BONE DENSITY 2 SITES AXIAL LOCATION: [facility] DATE: 05/24/2023 INDICATION: A. medication efficacy (currently taking meds for low bone density) - z79.83 Osteopenia Of Multiple Sites DEMOGRAPHICS: Age- 73 years. Gender- Female. COMPARISON: None. TECHNIQUE: Dual-energy x-ray absorptiometry (DXA) performed with routine technique. FINDINGS: DXA RESULTS -Lumbar Spine: L1-L2: BMD: 1.102 g/cm2. T-score: -0.5. Z-score: 0.6. -RIGHT Hip Total: BMD: 0.742 g/cm2. T-score: -2.1. Z-score: -1.0. -RIGHT Hip Femoral neck: BMD: 0.807 g/cm2. T-score: -1.7. Z-score: -0.3. -LEFT Hip Total: BMD: 0.723 g/cm2. T-score: -2.3. Z-score: -1.2. -LEFT Hip Femoral neck: BMD: 0.890 g/cm2. T-score: -1.1. Z-score: 0.3. WHO T-SCORE CRITERIA -Normal: T score at or above -1 SD -Osteopenia: T score between -1 and -2.5 SD -Osteoporosis: T score at or below -2.5 SD The World Health Organization (WHO) criteria is applicable to perimenopausal females, postmenopausal females, and men aged 50 years or older. FRACTURE RISK -FRAX Results: The 10 year probability of major osteoporotic fracture is 17.4%, and of hip fracture is 4.6%, based on right femoral neck BMD. RECOMMENDATIONS Consider treatment if major osteoporotic fracture score is greater than or equal to 20%, and if the hip fracture score is greater than or equal to 3%. Procedure Note Mikey Dotson MD - 05/24/2023 For Patients: As a result of the Cures Act, medical imagingexams and procedure reports are released immediately into your electronicmedical record. You may view this report before your referring provider.If you have questions, please contact your health care provider. EXAM: XR DXA BONE DENSITY 2 SITES AXIAL LOCATION: [facility] DATE: 05/24/2023 INDICATION: A. medication efficacy (currently taking meds for low bonedensity) - z79.83 Osteopenia Of Multiple Sites DEMOGRAPHICS: Age- 73 years. Gender- Female. COMPARISON: None. TECHNIQUE: Dual-energy x-ray absorptiometry (DXA) performed with routinetechnique. FINDINGS: DXA RESULTS -Lumbar Spine: L1-L2: BMD: 1.102 g/cm2. T-score: -0.5. Z-score: 0.6. -RIGHT Hip Total: BMD: 0.742 g/cm2. T-score: -2.1. Z-score: -1.0. -RIGHT Hip Femoral neck: BMD: 0.807 g/cm2. T-score: -1.7. Z-score: -0.3. -LEFT Hip Total: BMD: 0.723 g/cm2. T-score: -2.3. Z-score: -1.2. -LEFT Hip Femoral neck: BMD: 0.890 g/cm2. T-score: -1.1. Z-score: 0.3. WHO T-SCORE CRITERIA -Normal: T score at or above -1 SD -Osteopenia: T score between -1 and -2.5 SD -Osteoporosis: T score at or below -2.5 SD The World Health Organization (WHO) criteria is applicable toperimenopausal females, postmenopausal females, and men aged 50 years orolder. FRACTURE RISK -FRAX Results: The 10 year probability of major osteoporotic fracture is17.4%, and of hip fracture is 4.6%, based on right femoral neck BMD. RECOMMENDATIONS Consider treatment if major osteoporotic fracture score is greater than orequal to 20%, and if the hip fracture score is greater than or equal to3%. IMPRESSION: Low bone density (OSTEOPENIA). T score meets the WHO criteria for low bonedensity (osteopenia) at one or more measured sites. The risk ofosteoporotic fracture increases approximately two-fold for each standarddeviation decrease in T-score. Lcui Sue Gaetano DO DEXA * LIPID PANEL W REFLEX MEASURED LDL (04/06/2023 12:33 PM CDT) [facility] CHOLESTEROL,TOTAL 121 100 - 199 mg/dL 04/06/2023 5:48 PM CDT [facility] Comment: Cholesterol, Total Reference Ranges Desirable <200 mg/dL Borderline 200-239 mg/dL High >=240 mg/dL TRIGLYCERIDES 90 <150 mg/dL 04/06/2023 5:48 PM CDT [facility] HDL CHOLESTEROL 52 >40 mg/dL 5:48 PM CDT [facility] TRAL LAB[facility]ATORY NON-HDL CHOLESTEROL 69 <145 mg/dl 04/06/2023 5:48 PM CDT [facility] TR[facility] LAB[facility]ORY CHOL/HDL RATIO 2.33 <4.50 04/06/2023 5:48 PM CDT [facility] LDL CHOLESTEROL 51 <=130 mg/dL 04/06/2023 5:48 PM CDT [facility] TRAL LABORATORY VLDL CHOLESTEROL 18 <=30 mg/dL 04/06/2023 5:48 PM CDT [facility] TRAL LABORATORY PROVIDER ORDERED STATUS RANDOM 04/06/2023 5:48 PM CDT [facility] Blood BLOOD SPECIMEN / Unknown Venipuncture / Unknown 04/06/2023 12:33 PM CDT 04/06/2023 12:33 PM CDT Luci Sue Gaetano [facility]-CENTRAL LABORATORY [address] [place] [address], * ANTI HCV (05/14/2019 3:02 PM CDT) HEPATITIS C ANTIBODY Non-React lisa Non-React lisa 05/15/2019 4:08 PM CDT [facility]AT[facility] Comment:Antibodies to HCV no t detected; does not exclude the possibility of exposure to HCV. Blood BLOOD SPECIMEN / Unknown Venipuncture / Unknown 05/14/2019 3:02 PM CDT 05/14/2019 3:03 PM CDT Luci Salter DO SEND OUTS Performing Organization Address City/[facility] Co de Phone Number [facility]-CENTRAL LABORATORY [address] [place] [address], from Last 3 Months or Most Recently Relevant to Health Maintenance Advance Directives * Full Code (Latest Code Status on File) Date Activated Date Inactivated Comments 06/06/2023 9:35 AM 06/06/2023 7:40 PM Question Answer Comments Code Status Discussion: Unable to Assess Preferences, Provider to review later * Full Code Date Activated Date Inactivated Comments 09/03/2021 6:30 PM 09/09/2021 3:30 PM Question Answer Comments Code Status Discussion: Reviewed Preferences * Full Code Date Activated Date Inactivated Comments 08/26/2021 10:12 AM 08/26/2021 3:02 PM Reviewed Question Answer Comments Code Status Discussion: Reviewed Preferences * Full Code Date Activated Date Inactivated Comments 08/26/2021 10:07 AM 08/26/2021 10:12 AM Question Answer Comments Code Status Discussion: Reviewed Preferences Care Teams Rehabilitation Case Coordinator Relationship Specialty [place] [address] [place] [address] PCP - General Family Practice 11/26/15 Aleksey Lezama MD [address] [place] [address] Cardiology - CHF Cardiovascular Disease 10/20/21 Saranya Mra MBBS [address] [place] [address] Cardiovascular Disease 08/02/23
--- NOTE | 2024-02-27 12:15 | W.ANESCHARGE ---
Anesthesia Charges Start Date/Time Anesthesia Start Date: 02/27/24 Anesthesia Start Time: 12:07 Stop Date/Time Anesthesia Stop Date: 02/27/24 Anesthesia Stop Time: 12:23 Summary Extremes of Age - Over 70 or under 1: MDA
--- NOTE | 2024-02-27 12:27 | P.ANES_ITS ---
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
== END 2024-02-27 10:33 | disposition home or self-care (01) ==
LOC: OP CLINIC 10:33
PROVIDERS: PCP Family Medicine; Visit Provider Internal Medicine Gastroenterology
DX: R19.7 Diarrhea, unspecified (principal); K31.84 Gastroparesis; K31.1 Adult hypertrophic pyloric stenosis; Z87.11 Personal history of peptic ulcer disease
CPT/HCPCS: 00731; 43239; 88305; 88342; 99100; J2704; J3010

== ENCOUNTER 2024-03-08 09:50 | Outpatient (CLI) | payer OTHER, SELFPAY ==
--- OUTSIDE RECORDS SUMMARY | 2024-03-08 09:52 | XMS_ITS | Clinical Summary ---
Author Organization [facility] Address [place], [place] [address] Care Team Providers Care Arabic Professor Name Role Phone Luci Salter Primary Care Provider Aleksey Lezama MD Unavailable [phone] Saranya Mar Unavailable [phone] Allergies No known active allergies Medications [...] Active Problems Problem Noted Date Diagnosed Date Pyloric stenosis 03/01/2024 Overview: EGD 02/2024 Pyloric stenosis with retained food in the stomach unable to pass scope into the duodenum, recommend upper GI x-ray Hydronephrosis of right kidney 11/25/2022 Fatty liver [...] (HCC). Surgeon: Dr. Jesús Dooley MD at [facility]. Recommended to repeat colonoscopy in 1 year [...] area, patient will be referred to [facility] colorectal surgery for further care and probable surgery, follow-up colonoscopy pending [facility] review Colonoscopy 11/2023 Large SSA, TA, repeat [...] Encounters Date Type Department Care Team Description 03/01/2024 Telephone [facility] [address] [place] [address] Chris Sandoval MD 02/29/2024 3:45 PM CDT Orders Only [facility] [address] [place] [address] Lab, Farm Lab 02/27/2024 10:45 AM CDT Office Visit [facility] at [facility] [address] [place] [address] Chris Sandoval MD 02/27/2024 Lab Requisition [facility] [phone] Chris Sandoval MD 02/24/2024 9:00 AM CDT Preop Visit [facility] [address] [place] [address] Alexander Johns MD Preoperative Exam (EGD on 02/27/[address] Chris Sandoval at [facility]) 02/23/2024 3:00 PM CDT Office Visit [facility] [address] [place] [address] Chris Sandoval MD Consult (Diarrhea continues, anti-diarrheal helpful, smelly burps) 02/23/2024 Travel 02/18/2024 Travel 01/23/2024 2:00 PM CDT Ancillary Procedure [facility] [address] [place] [phone] 01/23/2024 Telephone [facility] [address] [place] [address] Bigg Crain MD Results 01/23/2024 Travel 01/17/2024 Telephone [facility] [address] [place] [address] Bigg Crain MD Results 01/16/2024 3:25 PM CDT Office Visit [facility] [address] [place] [address] Bigg Crain MD Dizziness (Seems to be happening more frequently but nothing certain brings it on.); Diarrhea (buttermaker issues) 01/16/2024 Travel 01/13/2024 Travel 12/26/2023 1:15 PM CDT Orders Only [place] [address] [place] [address] Lab, Farm Lab 12/22/2023 10:50 AM CDT Office Visit [facility] [address] [place] [address] Luci Salter, DO Diarrhea (Over a month); Dizziness (When going from sitting to standing quickly) 12/21/2023 Travel from Last 3 Months Immunizations Name Administration Dates Next Due AMB Influenza, IIV3 (Age >=3 years)(Flu Clinic Only) 07/04/2012,07/14/2010,07/26/2008 COVID-19 vaccine (Pfizer-Bio NTech 30mcg/0.3mL) 12YO+ BIVALENT PF, MDV 06/29/2022 COVID-19 vaccine (iovox-Bio NTech 30mcg/0.3mL) 12YO+ MARYAM-SUCROSE PF, MDV 04/23/2022 COVID-19 vaccine (iovox-KlikkaPromo NTech 30mcg/0.3mL) PF, MDV 12/26/2020,12/05/2020 Influenza Virus, [...] Sister 1 Sister 2 Christiane (Age 61) MSA Social History Tobacco Use Types Packs/Day Years [...] Sex Assigned at Female 10/07/2020 9:06 AM SECURITY ORDERLY Gender Identity Female 10/07/2020 9:06 AM SECURITY ORDERLY Sexual Orientation Straight 10/07/2020 9: 06 AM SECURITY ORDERLY Obstetrics History Last Filed Vital Signs Vital Sign Reading Time Taken Comments Blood Pressure 112/68 02/24/2024 8:53 AM CDT Pulse 68 02/24/2024 8:53 AM CDT Temperature 36.8 ??C (98.3 ??F) 12/22/2023 1 0:52 AM CDT Respiratory Rate 22 10/27/2023 1:05 PM SECURITY ORDERLY Oxygen Saturation 97% 02/23/2024 2:5 9 PM CDT Inhaled Oxygen Concentration - - Weight 81.8 kg (180 lb 6.4 oz) 02/24/20 24 8:53 AM CDT with shoes Height 172.7 cm (5' 8) 02/24/2024 8:53 AM CDT Body Mass Index 27.43 02/24/2024 8:53 AM CDT Plan of Treatment Health Maintenance [...] 06/26/2020, 06/02/2017 Medical Devices Implanted Type Area Licensed Practical Vocational Nurse Device Identifier Shelf Expiration Date Model / Serial / Lot Stent Uret 6fr 24cm Imajin Spencer W/O Guidewire - [id number] Implanted:Qty: 1 on 06/06/2023 by Ron Conrad MD at [facility] Right: [employer] 03/30/2024 [facility] / [id number] Procedures Procedure Name Priority Date/Time Associated Diagnosis Comments CRYPTOSPORIDIUM GIARDIA RAPI D ANTIGEN Routine 02/29/2024 4:00 PM CDT Belching Chronic diarrhea History of gastric ulcer LAB TRACKING EVENT Routine 02/27/2024 12:15 PM CDT PATH TISSUE EXAM Routine 02/27/2024 12:15 PM CDT ESOPHAGOGASTRODUODENOSCOPY Routine 02/26 12:00 AM CDT Belching Chronic diarrhea History of [...] Routine 12/22/2023 11:38 AM CDT Chronic diarrhea COLONOSCOPY SCREENING Routine 12/05/2023 8:07 AM CDT History of colon cancer Diarrhea, unspecified type CT CHEST SCREENING LOW DOSE WO CONTRAST [...] Recently Relevant to Health Maintenance Results * CRYPTOSPORIDIUM GIARDIA RAPID ANTIGEN (02/29/2024 4:00 PM CDT) CRYPTOSPORIDIUM Negative 4 10:16 AM CDT [facility] GIARDIA ANTIGEN Negative 4 10:16 AM CDT [facility] Stool STOOL SPECIMEN / Unknown Non-Blood / Unknown 02/29/2024 4:00 PM CDT 03/01/2024 7:57 AM CDT Chris Sandoval MD MICROBIOLOGY [facility] [address] [place] [address], * LAB TRACKING EVENT (02/27/2024 12:15 PM CDT) Other (Other) Client Collect / Unknown 02/27/2024 12:15 PM CDT 02/27/2024 9:48 PM CDT Chris Sandoval MD LAB [facility] [address] [place] [phone], * PATH TISSUE EXAM (02/27/2024 12:15 PM CDT) Case Report Pathology Report ?Case: [id number] ? Authorizing Provider: ??Chris Sandoval MD ?? Collected: ? 02/27/2024 1215 ? Ordering Location: ? [facility] ?Received: ?02/28/2024 0807 ? Pathologist: ? Lita Hanson MD ? Specimen: ?Gastric Biopsy ? 2:55 PM CDT [facility] Final Diagnosis A) STOMACH, BIOPSY: 1. Non-erosive reactive gastropathy (see comment) ?? a. Sampling: Antrum and body ?? b. Distribution: Antrum and body 2. Negative for Helicobacter (Helicobacter immunohistochemistry negative) 3. Negative for chronic inflammation, and atrophy 2:[address] [facility] Comment A) The likely etiolo gy is an ongoing non-inflammatory type mucosal injury due to a chemical type of injury; this may be due to ingestion of non-steroidal anti-inflammatory drugs, aspirin (via prostaglandin-mediated injury), excess alcohol, corticosteroids, or bile/alkaline reflux, the latter usually in the setting of a gastroenteric anastomosis. 2:[address] [facility] Clinical Information Diarrhea. Personal history of peptic ulcer disease. Upper GI endoscopy showed gastroparesis. There was stenosis at the pylorus. 2:[address] [facility] Gross Description A) Received in formalin are 4 joseph mucosal fragments ranging from 2 mm to 7 mm in greatest dimension, which are entirely submitted in one cassette. It is labeled with the patient's name and designated gastric BXS. Janay Mcfarlane 02/28/2024 12:29 PM 2:[address] [facility] Microscopic Description The final diagnosis is based on microscopic examination of appropriate sections of all specimens. 2:[address] [facility] Additional Information Interpreted at [facility] - [address], [place] [address] 2:[address] [facility] Other GASTRIC BIOPSY SPECIMEN / Unknown 02/27/2024 12:15 PM CDT 02/28/2024 8:07 AM CDT Chris Sandoval MD PATHOLOGY/CYTOLOG Y [facility] [address] [place] [address], * ESOPHAGOGASTRODUODENOSCOPY (02/27/2024 12:00 AM CDT) Chris Sandoval MD GI PROCEDURE ORD * POTASSIUM (02/24/2024 9:27 AM CDT) POTASSIUM 4.8 3.5 - 5.1 mmol/L 02/24/2024 2:30 PM CDT [facility] Blood BLOOD SPECIMEN / Unknown Venipuncture / Unknown 02/24/2024 9:27 AM CDT 02/24/2024 9:27 AM CDT Alexander Johns MD CHEMISTRY [facility] [address] [place] [address], [place] * US CAROTID DUPLEX BILATERAL (01/23/2024 2:28 [...] provider. EXAM: US CAROTID DUPLEX BILATERAL LOCATION: [facility] DATE: 01/23/2024 INDICATION: Dizziness COMPARISON: None. TECHNIQUE: [...] provider. EXAM: US CAROTID DUPLEX BILATERAL LOCATION: [facility] DATE: 01/23/2024 INDICATION: Dizziness COMPARISON: None. TECHNIQUE: [...] 3.5 - 5.1 mmol/L 01/17/2024 3:31 AM [facility] CHLORIDE 101 98 - 107 mmol/L 01/17/2024 3:31 AM [facility] CO2,TOTAL 26 22 - 29 mmol/L 01/17/2024 3:31 AM [facility] ANION GAP 8 5 - 18 01/17/2024 3:31 AM [facility] GLUCOSE 79 70 - 99 mg/dL 01/17/2024 3:31 AM [facility] CALCIUM 10.4(H) 8.8 - 10.2 mg/dL 01/17/2024 3:31 AM [facility] BUN 8 8 - 23 mg/dL 01/17/2024 3:31 AM [facility] CREATININE 0.93(H) 0.50 - 0.90 mg/dL 01/17/2024 3:31 AM [facility] BUN/CREAT RATIO 9(L) 10 - 20 3:31 AM [facility] eGFR 66(L) >90 mL/min/1.7 3m2 01/17/2024 3:31 AM [facility] Comment:As of 2021, eG FR [...] Bigg Crain MD CHEMISTRY Performing Organization Address [facility] Co de Phone Number [facility] [address] [place] [address], * PANCREATIC ELASTASE FECAL (12/26/2023 11:15 AM CDT) Pancreatic Elast Fecal 482 >200 ug Elast./g 01/02/2024 3:06 AM CDT [facility] Comment: ? Severe Pancreatic Insufficiency: ?<100 ? Moderate Pancreatic Insufficiency: ?? 100 - 200 ? Normal: ? >200 Stool STOOL SPECIMEN / Unknown Non-Blood / Unknown 12/26/2023 11:15 AM CDT 12/26/2023 11:52 AM CDT Narrative [facility] ([facility]) - 01/02/2024 3:06 AM CDT Performed at: ??[address] ??[id number] Division Plant Engineer: Henrik Tong MD, Phone: ??[phone] Luci Salter DO MICROBIOLOGY Performing Organization Address [facility] Co de Phone Number [facility] ([facility]) [address] [place] [id number], * CELIAC CASCADE PANEL (12/22/2023 11:38 AM CDT) IGA 443.56 84.50 - 499.00 mg/dL 12/23/2023 7:47 AM CDT [facility] Blood BLOOD SPECIMEN / Unknown Venipuncture / Unknown 12/22/2023 11:38 AM CDT 12/22/2023 11:38 AM CDT Narrative [facility] - 12/23/2023 7:47 AM CDT Reflexed to Tissue Transglutaminase IgA Luci Salter DO SEND OUTS Performing Organization Address [facility]/ZIP Co de Phone Number [facility] [address] [place] [address], [place] * TSH WITH REFLEX (12/22/2023 11:38 AM CDT) TSH 0.88 0.27 - 4.20 uIU/mL 12/22/2023 6:16 PM CDT [facility] Blood BLOOD SPECIMEN / Unknown Venipuncture / Unknown 12/22/2023 11:38 AM CDT 12/22/2023 11:38 AM CDT Narrative [facility] - 12/22/2023 6:16 PM CDT In Adults, TSH values between 5.00 and 10.00 uIU/ml do not necessarily indicate the presence of Hypothyroidism. Correlation with clinical findings such as presence of goiter and/or Thyroperoxidase (TPO) Antibody may be helpful. For more information please refer to ZEYAD 2004; 291: 228-238. Luci Salter DO CHEMISTRY Performing Organization Address [facility] Co de Phone Number [facility] [address] [place] [address], [place] * TISSUE TRANSGLUTAMINASE IGA (12/22/2023 11:38 AM CDT) TISSUE TRANSGLUTAMINASE IGA 1.3 <4.0 U/ml 12/23/2023 12:14 PM CDT [facility] Comment:Celiac disease unlik keon unless IgA deficient. Recommend IgA levels if not already performed. Blood BLOOD SPECIMEN / Unknown Venipuncture / Unknown 12/22/2023 11:38 AM CDT 12/22/2023 11:38 AM CDT Narrative [facility] - 12/23/2023 12:14 PM CDT Negative ?<4.0 Weak Positive ?? 4-10 Positive ?>10.0 This test should not be solely relied upon to establish a diagnosis of celiac disease. Affected individuals who have been on a gluten-free diet prior to testing may have a negative result. These results were obtained using the Quarticsa Lite R h-tTG IgA LESLIE assay. ??Values obtained from other manufacturers' assay methods may not be used interchangeably. Luci Salter DO SEND OUTS [facility] [address] [place] [address], * SCAN-COLONOSCOPY (12/05/2023 12:00 AM CDT) Scanner [...] DOSE LUNG CANCER SCREENING CT CHEST LOCATION: [facility] DATE: 05/24/2023 INDICATION: Lung cancer screening. History [...] DOSE LUNG CANCER SCREENING CT CHEST LOCATION: [facility] DATE: 05/24/2023 INDICATION: Lung cancer screening. History [...] with low-dose CTchest in [address] * XR MAMMO YVON BILAT [...] care provider. XR MAMMO YVON BILAT SCREEN [[id number]] CLINICAL HISTORY: ??This is an asymptomatic 73 y.o. patient. INDICATION FOR EXAM: Mammogram Screening. TECHNIQUE: CC & MLO views were obtained. ??This study was evaluated with the assistance of Computer-Aided Detection. Breast Tomosynthesis was used in interpretation. COMPARISON FILM: Yes 05/13/22 [facility] 03/19/21 [facility] FINDINGS: ??The breasts have scattered areas of fibroglandular density. There are no dominant masses, suspicious micro calcifications or areas of architectural distortion. Luci Underwood Gaetano DO MAMMO * XR DXA BONE DENSITY [...] DXA BONE DENSITY 2 SITES AXIAL LOCATION: [facility] DATE: 05/24/2023 INDICATION: A. medication efficacy (currently [...] DXA BONE DENSITY 2 SITES AXIAL LOCATION: [facility] DATE: 05/24/2023 INDICATION: A. medication efficacy (currently [...] two-fold for each standarddeviation decrease in T-score. Luci Lirianoe Gaetano DO DEXA * LIPID PANEL W REFLEX MEASURED LDL (04/06/2023 12:33 PM CDT) [facility] CHOLESTEROL,TOTAL 121 100 - 199 mg/dL 04/06/2023 5:48 PM CDT [facility] Comment: Cholesterol, Total Reference Ranges Desirable <200 mg/dL Borderline 200-239 mg/dL High >=240 mg/dL TRIGLYCERIDES 90 <150 mg/dL 04/06/2023 5:48 PM CDT [facility] HDL CHOLESTEROL 52 >40 mg/dL 5:48 PM CDT [facility] NON-HDL CHOLESTEROL 69 <145 mg/dl 04/06/2023 5:48 PM CDT [facility] CHOL/HDL RATIO 2.33 <4.50 04/06/2023 5:48 PM CDT [facility] LDL CHOLESTEROL 51 <=130 mg/dL 04/06/2023 5:48 PM CDT [facility] VLDL CHOLESTEROL 18 <=30 mg/dL 04/06/2023 5:48 PM CDT [facility] PROVIDER ORDERED STATUS RANDOM 04/06/2023 5:48 PM CDT [facility] Blood BLOOD SPECIMEN / Unknown Venipuncture / Unknown 04/06/2023 12:33 PM CDT 04/06/2023 12:33 PM CDT Luci Salter DO CHEMISTRY Performing Organization Address City/[facility]/ZIP Co de Phone Number [facility] [address] [place] [address], * ANTI HCV (05/14/2019 3:02 PM CDT) HEPATITIS C ANTIBODY Non-React lisa Non-React lisa 05/15/2019 4:08 PM CDT [facility] [employer] [facility] Comment:Antibodies to HCV no t detected; does not exclude the possibility of exposure to HCV. Blood BLOOD SPECIMEN / Unknown Venipuncture / Unknown 05/14/2019 3:02 PM CDT 05/14/2019 3:03 PM CDT Luci Salter DO SEND OUTS Performing Organization Address City/[facility] Co de Phone Number [facility] [place] [address] [place] [address], from Last 3 Months or Most Recently [...] Code Status Discussion: Reviewed Preferences Care Teams Arabic Professor Relationship Specialty [place] [address] [place] [address] PCP - General Family Practice 11/26/15 Aleksey eLzama MD [address] [place] [address] Cardiology - CHF Cardiovascular Disease 10/20/21 Saranya Mar MBBS [address] [place] [address] Cardiovascular Disease 08/02/23
--- OUTSIDE RECORDS SUMMARY | 2024-03-08 09:52 | XMS_ITS | Clinical Summary ---
Author Organization [facility] Address [address] [place] [address] Care Team Providers Care Chronometer Repairer Name Role Phone Unassigned, Provider Primary Care [...] for each transition of care or referral. [employer] for [employer] Medications Medication Sig Dispensed Refills Start Date [...] Administration Dates Next Due Influenza Vaccine (3+years) ([facility]) 009 Social History Tobacco Use [...] Comments Blood Pressure 133/64 11/07/2017 11:59 AM ACCOUNTING LECTURER Pulse 69 11/07/2017 11:59 AM ACCOUNTING LECTURER Temperature - - Respiratory Rate - - Oxygen Saturation 97% 11/07/2017 11:59 AM ACCOUNTING LECTURER Inhaled Oxygen Concentration - - Weight 64.4 [...] age to complete this topic Care Teams Chronometer Repairer Relationship Specialty Start Date End Date Unassigned, Provider [address] [place] [address] PCP - General 08/28/09
--- OUTSIDE RECORDS SUMMARY | 2024-03-08 09:52 | XMS_ITS | Data Portability ---
Author Organization [facility] Address [address] [place] [address] Care Team Providers Care Medical Assisting Program Director Name Role Phone JAS CABRERA Primary Care Provider [phone] Assessment Encounter Date Assessment Date Assessment LastModified by Organization Details LastModified Time 03/08/2023 03/08/2023 73 year old female with a right ureteropelvic junction obstruction. Not available 03/08/2023 16:47:20 06/29/2023 06/29/2023 73 year old female with a history of a right ureteropelvic junction obstruction here for post-operative stent removal following right pyeloplasty. Not available 06/29/2023 09:09:17 10/25/2023 10/25/2023 73 year old female with a history of a right ureteropelvic junction obstruction Not available 10/25/2023 13:43:38 Plan of Treatment Reminders Order Date Submit Date Provider Last Modified By Organization Details Last Modified Time Details Appointments None recorded. Lab None recorded. Referral None recorded. Procedures None recorded. Surgeries pyeloplasty , robot assisted laparoscopi c (SURG) 2022 023 norma Not available 09:12:28 Imaging US, kidney 2023 025 norma [facility] Radiology Department, [address] [place], [address], 15:00:46 Medication Orders None recorded. Patient TargetsNo targets recorded. Patient Instructions Encounter Date Encounter Id Patient Instructions Last Modified By Organization Details Last Modified Time 10/25/2023 [id number] Right ureteropelvic junction obstruction: Her obstruction has significantly improved and she is asymptomatic. While the drainage curve on the right is somewhat prolonged, I think this is actually quite an improvement. We are also seeing improvement in her split function which I think is encouraging. I recommend she return in 1 year with a renal ultrasound. Not available 10/25/2023 13:46:14 06/29/2023 [id number] Right ureteropelvic junction obstruction: Stent removed in office today. They tolerated the procedure well. We discussed that ureteral spasm may occur following stent removal and this typically happens within the next several hours. We then discussed concerning signs such as persistent and unremitting pain, persistent nausea/vomiting, or fevers >100.4F. If these do occur, this would be reasons to present to the Emergency Room for evaluation. She will return in 3 months with a lasix renogram to assess for resolution of obstruction. [facility] Not available 06/29/2023 09:09:19 03/08/2023 [id number] Ureteropelvic junction obstruction: I discussed with the patient the natural history of ureteropelvic junction obstruction and the potential causes such as stricture, an aperistaltic segment, or a crossing vessel. We discussed that while these may not always cause symptoms, in the event of high grade obstruction this may result in intermediate project manager loss of function if not appropriately addressed. We then discussed the potential options for management: 1. Observation 2. Ureteral stent placement 3. Endopyelotomy 4. Robotic-assisted laparoscopic pyeloplasty We then covered the risks of pyeloplasty including bleeding, infection, injury to surrounding structures, anesthetic complications (DVT/PE/IA/), recurrence/failure , and wound complications. We discussed expected post-operative course including need for hospitalization, need for a post-operative ureteral stent for typically 3 weeks, and a post-operative drain. My recommendation is robotic-assisted laparoscopic right pyeloplasty. She would like to proceed accordingly. Schedule for robotic-assisted laparoscopic right pyeloplasty. Not available 03/08/2023 16:46:30 Reason for Referral None Reported. Results Created Date Observation Date Name Description Value Unit Range Abnormal Flag LastModifiedBy Organization Detail LastModifiedTime 02/26/20 23 01/25/2023 CT, abdom en + pelvi s, w/wo contr ast No observ ation record ed. Not Available 03/08/2023 16:19:38 02/26/20 23 11/25/2022 US, abdom en No observ ation record ed. Not Available 03/08/2023 16:19:39 06/16/20 23 02/25/2023 NM, kidne y scan No observ ation record ed. [email or web address] [facility] [address], [place], [address], 06/17/2023 11:29:41 10/15/19 24 10/13/2023 NM, kidne y scan No observ ation record ed. [email or web address] [facility] [address], [place], [address], 10/24/2023 09:15:10 Result Notes None recorded. Problems Name Status Onset Date Resolution Date Notes Provider Name and Address Organization Details Recorded Time Raynaud's disease Active 023 Roe Meath null, [facility] 06/28/2023 16:16:22 Atrial fibrillation Active 023 Roe Meath null, [facility] 06/28/2023 16:16:39 Congestive heart failure Active 023 Roe Meath null, [facility] 06/28/2023 16:16:58 Hyperlipidemia Active 023 Roe Meath null, [facility] 06/28/2023 16:17:09 Malignant tumor of colon Active 023 Roe Meath null, [facility] 06/28/2023 16:17:25 Gastroesophageal reflux disease Active 023 Roe Meath null, [facility] 06/28/2023 16:17:31 Obstruction of pelviureteric junction Active 024 Roe Meath null, [facility] 10/18/2023 15:46:04 Problem Notes None recorded. Procedures Surgical History Date Name Laterality Status Provider Name and Address Organization Details Recorded Time 10/25/19 24 COMPLEX VISIT completed Ron Conrad MD [address], [place], [address], [place] [facility] 10/25/2023 14:49:50 06/29/20 Cystoscopy with foreign body/stent removal completed Ron Conrad MD [address], [place], [address], [place] [facility] 06/29/2023 09:07:37 01/25/20 Colonoscopy completed Roe medina [facility] 10/18/2023 15:46:37 07/27/20 20 Diagnostic colonoscopy completed Not Available Health Note 03/04/2023 21:05:31 Laparoscopic cholecystectomy completed Not Available Health Note 03/04/2023 21:05:31 Partial hysterectomy completed Not Available Health Note 03/04/2023 21:05:31 Laparoscopy remove adnexa completed Not Available Health Note 03/04/2023 21:05:31 Imaging Results Imaging Date Name Status LastModified by Organiz ation Details LastModified Time 01/25/2023 CT, abdomen + pelvis, w/wo contrast completed [facility] Information not available 03/08/2023 16:19:38 11/25/2022 US, abdomen completed [facility] Information n ot available 03/08/2023 16:19:39 02/25/2023 NM, kidney scan completed [email or web address] [facility] [address], [place], [address], 06/17/2023 11:29:41 10/13/2023 NM, kidney scan [place] [address] [facility] [address], [place], [address], 10/24/2023 09:15:10 Procedure Notes None recorded. Medical Equipment None Reported. Allergies No known drug allergies Medications Name Sig Start Date Stop Date Status Note LastModified by Organization Details LastModified Time furosemid e 40 mg tablet TAKE 1 TABLET BY MOUTH EVERY MORNING. 03/08 completed HN: Patient reports no longer taking Not Available Not Available Not Available potassium chloride ER 10 mEq capsule,e xtended release TAKE 2 CAPSULES (20 MEQ) BY MOUTH ONCE DAILY WITH A MEAL. active Not Available Not Available No t Available prednison e 10 mg tablet TAKE 3 TABLETS (30 MG) BY MOUTH ONCE DAILY WITH A MEAL FOR 5 DAYS. 03/08 completed HN: Patient reports no longer taking Not Available Not Available Not Available atorvasta tin 20 mg tablet TAKE 1 TABLET BY MOUTH EVERY DAY active Not Available Not Available No t Available tizanidin e 2 mg tablet TAKE 1 TABLET (2 MG) BY MOUTH EVERY 8 HOURS IF NEEDED FOR MUSCLE SPASM. 03/08 completed HN: Patient reports no longer taking Not Available Not Available Not Available oxybutyni n chloride ER 10 mg tablet,ex tended release 24 hr 06/28 completed Not Available Not Available Not Available ketorolac 10 mg tablet 06/28 completed Not Available Not Available Not Available tamsulosi n 0.4 mg capsule active Not Available Not Available Not Available doxycycli ne monohydra te 100 mg capsule TAKE 1 CAPS BY MOUTH IN THE MORNING AND 1 CAPS IN THE EVENING. DO ALL THIS FOR 10 DAYS 03/08 completed HN: Patient reports no longer taking Not Available Not Available Not Available omeprazol e 20 mg capsule,d elayed release TAKE 1 CAPSULE BY MOUTH EVERY DAY BEFORE MEALS active Not Available Not Available No t Available furosemid e 20 mg tablet TAKE 1 TAB ORALLY EVERY MORNING. MAY ALSO TAKE 1 TAB ONCE DAILY IF NEEDED LEG SWELLING /CONGEST ION active Not Available Not Available No t Available metoprolo l succinate ER 25 mg tablet,ex tended release 24 hr TAKE 0.5 TABLETS BY MOUTH ONCE DAILY. active Not Available Not Available No t Available albuterol sulfate HFA 90 mcg/actua tion aerosol inhaler INHALE 1-2 PUFFS BY MOUTH EVERY 4 HOURS IF NEEDED FOR WHEEZING 1ST CHOICE FOR UP TO 5 DAYS. 03/08 completed HN: Patient reports no longer taking Not Available Not Available Not Available cefdinir 300 mg capsule 10/25 completed Not Available Not Available Not Available oxycodone 5 mg tablet 10/25 completed Not Available Not Available Not Available escitalop santa 5 mg tablet TAKE 1 TABLET BY MOUTH EVERY MORNING active Not Available Not Available No t Available Xarelto 20 mg tablet TAKE 1 TABLET (20 MG) BY MOUTH ONCE DAILY WITH EVENING MEAL. active Not Available Not Available No t Available Combivent Respimat 20 mcg-100 mcg/actua tion solution for inhalatio n INHALE 1 PUFF BY MOUTH 4 TIMES DAILY. 03/08 completed HN: Patient reports no longer taking Not Available Not Available Not Available Anoro Ellipta 62.5 mcg-25 mcg/actua tion powder for inhalatio n PLEASE SEE ATTACHED FOR DETAILED DIRECTIO NS active Not Available Not Available No t Available Flowflex COVID-19 Antigen Home Test kit USE DIRECTED COVID TEST 03/08 completed HN: Patient reports no longer taking Not Available Not Available Not Available Vitals Date Recorded Body mass index (BMI) Body height Body weight Provider Name and Address Organization Details Last Updated DateTime 03/08/2023 27.5 kg/m2 175.26 cm 75371.2811 80655 g Not Available Health Note 03/08/2023 09:08:56 Date Recorded Body height Provider Name an d Address Organization Details Last Updated DateTime 06/29/2023 175.26 cm [facility] 12:25:39 Date Recorded Body height Provider Name an d Address Organization Details Last Updated DateTime 10/25/2023 175.26 cm [facility] 14:40:51 Social History Question Answer Notes LastModified by Organizat ion Details LastModified Time Tobacco Smoking Status Current Every Day Smoker Not Available Health Note 10/21/2023 15:03:25 What Is Your Level Of Alcohol Consumption? Occasional Information not available 10/25/2023 What Is Your Level Of Caffeine Consumption? Moderate [email or web address] Information not available 10/21/2023 How Much Tobacco Do You Chew? None [email or web address] Information not available 10/21/2023 Do You Or Have You Ever Used E-cigarettes Or Vape? Never Used Electronic Cigarettes [email or web address] Information not available 10/21/2023 Number Of Pregnancies 3 [email or web address] Information not available 03/04/2023 Number Of Vaginal Deliveries 3 [email or web address] Information not available 03/04/2023 Number Of Caesarean Sections 0 [email or web address] Information not available 03/04/2023 Could You Be ? No [email or web address] Information not available 03/04/2023 What Was The Date Of Your Most Recent Tobacco Screening? 10/25/2023 [email or web address] Information not available 10/21/2023 Have You Ever Been Counseled For Unhealthy Alcohol Use? No Information not available 06/29/2023 What Is Your Relationship Status? [email or web address] Information not available 03/04/2023 Are You Sexually Active? No [email or web address] Information not available 10/21/2023 Do You Or Have You Ever Used Smokeless Tobacco? Never Used Smokeless Tobacco [email or web address] Information not available 10/21/2023 How Much Tobacco Do You Smoke? 0.5 PPD [email or web address] Information not available 10/21/2023 Do You Use Any Illicit Or Recreational Drugs? No [email or web address] Information not available 10/21/2023 Has Tobacco Cessation Counseling Been Provided? Yes Information not available 06/29/2023 On What Date Was Tobacco Cessation Counseling Provided? 10/25/2023 Information not available 10/25/2023 How Many Years Have You Smoked Tobacco? 58 [email or web address] Information not available 10/21/2023 Do You Or Have You Ever Used Any Other Forms Of Tobacco Or Nicotine? No Information not available 06/29/2023 How Many Days In The Past Year Have You Consumed 4 Or More Drinks? 0 [email or web address] Information no t available 10/21/2023 Sex: Female Functional Status None recorded. Mental Status None recorded. Family History Relationship Description Onset Age of this Age Resolved Age Notes Mother Family history of cancer of colon Mother Family history of cardiac disorder Mother Family history of renal stone Mother Family history of cancer Father Family history of cardiac disorder Father Family history of cancer Maternal Grandmother Family history of renal stone Medical History Condition Response Sexually Transmitted Infection N Diabetes N Bleeding Disorder N High Blood Pressure N Kidney Stones N Cancer N Lung Disease Y Depression N High Cholesterol N GERD/Acid Reflux N Heart Disease Y Gynecological History Statement/Question Response If Post Menopausal, Age at Menopause 53 Hormone Therapy N Sexually Active? N Obstetrics History GPAL:G 0 P 0 0 0 0 Immunizations Vaccine Type Date Status Provider Name and Address Organization Details Recorded Time pneumococcal, unspecified formulation 05/27/2021 completed Roe medina [facility] 10/25/2023 14:40:57 influenza, unspecified formulation 06/30/2023 completed Roe Meath null, [facility] 10/25/2023 14:40:57 SARS-COV-2 (COVID-19) vaccine, UNSPECIFIED 06/24/2023 completed Roe Meath null, [facility] 10/25/2023 14:40:57 zoster live 09/26/2020 completed Roe Meath null, [facility] 10/25/2023 14:40:57 Influenza, adjuvanted, quadrivalent, PF 07/14/2023 completed Roe Meath null, [facility] 10/25/2023 14:40:57 RSV, bivalent, protein subunit RSVpreF, diluent reconstituted, 0.5 mL, PF 08/04/2023 completed Roe Meath null, [facility] 10/25/2023 14:40:57 COVID-19, mRNA, LNP-S, PF, keily-sucrose, 30 mcg/0.3 mL 07/21/2023 completed Roe Meath null, [facility] 10/25/2023 14:40:57 influenza, unspecified formulation 05/27/2022 completed Roe Meath null, [facility] 10/25/2023 14:40:57 SARS-COV-2 (COVID-19) vaccine, UNSPECIFIED 06/26/2022 completed Roe Meath null, [facility] 10/25/2023 14:40:57 Pneumococcal conjugate PCV 13 06/26/2019 completed Roe Meath null, [facility] 10/25/2023 14:40:57 Influenza, split virus, quadrivalent, preservative 06/25/2016 completed Roe Meath null, [facility] 06/28/2023 16:15:46 Influenza, adjuvanted, trivalent, PF 10/18/2019 completed Roe Meath null, [facility] 06/28/2023 16:15:46 Influenza, adjuvanted, trivalent, PF 06/02/2018 completed Roe Meath null, [facility] 06/28/2023 16:15:46 zoster recombinant 05/11/2019 completed Roe Meath null, [facility] 06/28/2023 16:15:46 zoster recombinant 07/26/2019 completed Roe Meath null, [facility] 06/28/2023 16:15:46 Influenza, adjuvanted, quadrivalent, PF 06/05/2020 completed Roe Meath null, [facility] 06/28/2023 16:15:46 Influenza, adjuvanted, quadrivalent, PF 06/11/2021 completed Roe Meath null, [facility] 06/28/2023 16:15:46 Influenza, adjuvanted, quadrivalent, PF 06/24/2022 completed Roe Meath null, [facility] 06/28/2023 16:15:46 COVID-19, mRNA, LNP-S, PF, 30 mcg/0.3 mL dose 12/05/2020 completed Roe Meath null, [facility] 06/28/2023 16:15:46 COVID-19, mRNA, LNP-S, PF, 30 mcg/0.3 mL dose 12/26/2020 completed Roe Meath null, [facility] 06/28/2023 16:15:46 COVID-19, mRNA, LNP-S, PF, 30 mcg/0.3 mL dose 06/26/2021 completed Roe Meath null, [facility] 06/28/2023 16:15:46 COVID-19, mRNA, LNP-S, PF, 30 mcg/0.3 mL dose, keily-sucrose 04/23/2022 completed Roe Meath null, [facility] 06/28/2023 16:15:46 COVID-19, mRNA, LNP-S, bivalent, PF, 30 mcg/0.3 mL dose 06/29/2022 completed Roe Meath null, [facility] 06/28/2023 16:15:46 pneumococcal polysaccharide PPV23 06/02/2018 completed Roe Meath null, [facility] 06/28/2023 16:15:46 Tdap 08/01/2017 completed Roe Meath null, [facility] 06/28/2023 16:15:46 Pneumococcal conjugate PCV 13 05/05/2017 completed Roe Meath null, [facility] 06/28/2023 16:15:46 Influenza, high-dose, trivalent, PF 08/01/2017 completed Roe Meath null, [facility] 06/28/2023 16:15:46 Influenza, split virus, trivalent, preservative 07/04/2012 completed Roe Meath null, [facility] 06/28/2023 16:15:46 Influenza, split virus, trivalent, preservative 07/14/2010 completed Roe Meath null, [facility] 06/28/2023 16:15:46 Influenza, split virus, trivalent, preservative 07/26/2008 completed Roe Meath null, [facility] 06/28/2023 16:15:46 Influenza, split virus, trivalent, preservative 08/21/2014 completed Roe Meath null, [facility] 06/28/2023 16:15:46 Influenza, split virus, trivalent, PF 09/03/2009 completed Roe Meath null, [facility] 06/28/2023 16:15:46 Influenza, split virus, quadrivalent, PF 06/04/2016 completed Roe Meath null, [facility] 06/28/2023 16:15:46 Past Encounters Encounter ID Performer Location Encounter Start Date Encounter Closed Date Diagnosis/Indication Diagnosis SNOMED-CT Code [id number] Ron Conrad MD [address] [address] 03/08/2023 09:08:51 03/08/2023 17:13:57 Obstruction of pelviureteric junction [id number] Ron Conrad MD [facility] [address] [place] [address],[address] [place] [address] 06/29/2023 12:19:44 06/29/2023 13:34:27 Obstruction of pelviureteric junction [id number] Ron Conrad MD [facility] [address] [place] [id number] 10/25/2023 09:00:29 10/25/2023 15:00:46 Obstruction of pelviureteric junction [id number] Health Concerns Section Related Observation LastModified by Organization Detai ls LastModified Time None Recorded Concern Status LastModified by Organization Details LastModified Time None Recorded Advance Directives Directive None Recorded Payers Encounter Date Sequence Insurance Name Policy Number Policy Deleon Covered Member ID Deleon Member ID Guarantor Name 10/25/2023 1 [employer] (MEDICARE REPLACEMENT PPO) [id number] 1 Darlin I Zippa [id number] Darlin Zippa 06/29/2023 1 [employer] (MEDICARE REPLACEMENT PPO) [id number] 1 Darlin I Zippa [id number] Darlin Zippa 03/08/2023 1 [employer] (MEDICARE REPLACEMENT PPO) [id number] 1 Darlin I Zippa [id number] Darlin Zippa Notes Date Note Type Note Provider Name and Address Organization Details Recorded Time 03/08/2023 text/html HPI Notes: This is a 73 year old female who is referred for the evaluation and management of a right ureteropelvic junction obstruction. She underwent an abdominal ultrasound as part of the evaluation of abnormal liver enzymes on 11/09/2022. This revealed incidental right hydronephrosis with concern for ureteropelvic junction obstruction. She underwent a follow up CT urogram on 01/17/2023 which showed moderate right hydronephrosis down to the level of the right ureteropelvic junction obstruction. She then underwent a lasix renogram on 02/04/2023 (read not yet available) which showed a 67% left and 33% left split function with a prolonged T1/2 on the right side suggestive of high grade obstruction. She is now referred to mo for further management. Ron Conrad MD [address] [place] [address],[address], [address], [facility] 03/08/2023 17:08:42 06/29/2023 text/html HPI Notes: This is 73 year old female with a history of a right ureteropelvic junction obstruction here for post-operative stent removal following right pyeloplasty. She underwent an abdominal ultrasound as part of the evaluation of abnormal liver enzymes on 11/09/2022. This revealed incidental right hydronephrosis with concern for ureteropelvic junction obstruction. She underwent a follow up CT urogram on 01/17/2023 which showed moderate right hydronephrosis down to the level of the right ureteropelvic junction obstruction. She then underwent a lasix renogram on 02/04/2023 (read not yet available) which showed a 67% left and 33% left split function with a prolonged T1/2 on the right side suggestive of high grade obstruction. She is now status post robotic-assisted laparoscopic right pyeloplasty on 06/06/2023. She is here today for post-operative stent removal. Ron Conrad MD [address] [place] [address],[address], [place], [address], [facility] 06/29/2023 12:43:16 10/25/2023 text/html HPI Notes: This is 73 year old female here for the ongoing management of a right ureteropelvic junction obstruction. She underwent an abdominal ultrasound as part of the evaluation of abnormal liver enzymes on 11/09/2022. This revealed incidental right hydronephrosis with concern for ureteropelvic junction obstruction. She underwent a follow up CT urogram on 01/17/2023 which showed moderate right hydronephrosis down to the level of the right ureteropelvic junction obstruction. She then underwent a lasix renogram on 02/04/2023 (read not yet available) which showed a 67% right and 33% left split function with a prolonged T1/2 on the right side suggestive of high grade obstruction. She is now status post robotic-assisted laparoscopic right pyeloplasty on 06/06/2023. She underwent a follow up lasix renogram on 10/13/2023 which showed a slightly prolonged clearance time on the right of 25 min with significant improvement from prior. Split function was measured at 59% left and 41% on the right. Ron Conrad MD [address] [place] [address],[address], [place], [address], [facility] 10/25/2023 14:51:07 OBGyn Episode No OBEpisode recorded.
--- NOTE | 2024-03-08 10:15 | CRLHL7_ITS ---
For Patients: As a result of the Cures Act, medical imaging exams and procedure reports are released immediately into your electronic medical record. You may view this report before your referring provider. If you have questions, please contact your health care provider. UPPER GI ABDOMEN INDICATION Recent diagnosis of pyloric stenosis status post endoscopic evaluation. Follow-up. Prior cholecystectomy. Right hemicolectomy for colon cancer. Prior history of a ureteral stent. TECHNIQUE Single and double-contrast upper GI. FINDINGS The esophagus is within normal limits. No evidence for esophageal stricture, mass, or obstruction. No evidence for esophageal dysmotility. No esophageal hiatal hernia. Valsalva maneuvers were utilized and there were still no hernia with Valsalva maneuvers. There is mild narrowing of the pylorus. There was no significant retained food or debris in the stomach prior to the procedure. The duodenal bulb is slightly irregular likely due to prior ulcer disease. No obstruction. No significant hold-up of barium. The visualized proximal small bowel is unremarkable. Surgically absent gallbladder. 5 minutes 28 seconds fluoroscopy time utilized. IMPRESSION 1. Mildly narrowed pylorus. This does not cause any significant hold-up of barium in the stomach nor impede the transit of barium. 2. Mildly distorted duodenal bulb likely related to old ulcer disease. 3. No gastric mass. 4. Normal-appearing esophagus. ESPINOZA SLAUGHTER M.D. Transcribed: 2:00 p.m. [email or web address] JR/Dictated by: Espinoza Slaughter MD @ 03/08/2024 12:15:00 PM (Electronically Signed)
== END 2024-03-08 09:51 | disposition home or self-care (01) ==
LOC: RAD 09:50
PROVIDERS: PCP Family Medicine; Visit Provider Internal Medicine Gastroenterology
DX: R10.13 Epigastric pain (principal); K31.1 Adult hypertrophic pyloric stenosis
CPT/HCPCS: 74246

== ENCOUNTER 2024-06-06 22:33 | Emergency (ER) | payer OTHER, SELFPAY ==
--- NOTE | 2024-06-06 22:38 | CRLHL7_ITS ---
For Patients: As a result of the Century Cures Act, medical imaging exams and procedure reports are released immediately into your electronic medical record. You may view this report before your referring provider. If you have questions, please contact your health care provider. INDICATION: EPIGASTRIC PAIN. HX PYLORIC STENOSIS. HX COLON CANCER. TECHNIQUE: CT abdomen and pelvis acquired with 71 cc Omnipaque 350 IV contrast. COMPARISON: CT abdomen and pelvis dated 06/29/2023. FINDINGS: Lower chest: Bibasilar subsegmental atelectasis/scarring. Liver: No suspicious masses. Gallbladder and bile ducts: Redemonstrated postsurgical changes of cholecystectomy with increased dilatation of the intrahepatic and extrahepatic biliary tree with relatively smooth tapering toward the ampulla of Vater. Pancreas: Unremarkable. No mass or inflammation. Spleen: Unremarkable. Normal in size. No masses. Adrenal glands: Unremarkable. No nodules. Kidneys: Right renal cortical atrophy subcentimeter cortical hypodensities are too small to characterize, but may reflect cysts. No suspicious masses, stones, or hydronephrosis. GI tract: Redemonstrated suture line along the right hemicolon. There is a loop of distal small bowel in the left lower quadrant that shows stratified mural hyperenhancement (2/115) no evidence of a mechanical bowel obstruction. Colonic diverticulosis without evidence of acute diverticulitis. Vasculature: Abdominal aorta is normal in caliber. Mesenteric arteries are patent. Lymph nodes: No lymphadenopathy. Peritoneum/Abdominal Wall: New small volume ascites. Pelvis: Unremarkable. Bones: Redemonstrated chronic degenerate changes of the thoracolumbar spine with a chronic compression deformity of the T12 vertebral body. IMPRESSION: 1. Redemonstrated postsurgical changes of cholecystectomy with increased dilatation of the biliary tree in a pattern that is most suggestive of reservoir effect. However, if there are signs suggestive of a biliary obstruction, this could be further characterized with a right upper quadrant ultrasound. 2. There is hyperenhancement of a loop of small bowel in the left lower quadrant, which is suggestive of enteritis, which could be infectious or inflammatory in etiology. 3. New small volume ascites of uncertain etiology. Please note that all CT scans at this facility use dose modulation, iterative reconstruction, and/or weight-based dosing when appropriate to reduce radiation dose to as low as reasonably achievable. Dictated by Jose Bermudez MD @ 06/07/2024 12:07:16 AM (Electronically Signed)
[2024-06-06 22:40] VITALS: BP 107/58; PULSE 50; RESP 16; TEMP 35.7; O2SAT 95; BMI 26.6
[2024-06-06 22:50] VITALS: PULSE 52; O2SAT 93
[2024-06-06 22:52] LABS: Basophils Absolute Auto 0.04 K/uL (0.00-0.30); Basophils Percent Auto 0.4 % (0.0-3.0); Eosinophils Percent Auto 1.1 % (0.0-7.0); Hematocrit 43.9 % (33.0-51.0); Hemoglobin* 14.1 gm/dL (12.0-16.0); Immature Granulocytes Abs Auto 0.09 K/uL (0.00-0.30); Lymphocytes Percent Auto 23.9 % (20-44); Mean Corpuscular HGB Conc 32 gm/dL (32-36); Mean Corpuscular Hemoglobin 30 pg (26-34); Mean Corpuscular Volume 92 fL (80-100); Monocytes Percent Auto 6.4 % (0.0-11.0); Neutrophils Absolute Auto 6.17 K/uL (1.7-7.0); Neutrophils Percent Auto 67.2 % (42.0-72.0); Platelet Count* 195 K/uL (140-440); RDW Coefficient of Variation % 13.3 % (11.5-15.5); Red Blood Count 4.75 m/uL (4.00-5.20); White Blood Count* 9.19 K/uL (4.50-11.00)
[2024-06-06] MEDS: ONDANSETRON 2 MG/ML inj 4 MG IVP (22:54)
[2024-06-06] MEDS: LACTATED RINGERS 1000 ML 1,000 ML IV (22:54)
[2024-06-06 22:57] LABS: Troponin, Point-of-Care* 0.01 ng/ml (0.01-0.04)
[2024-06-06 23:00] VITALS: PULSE 51; O2SAT 92
[2024-06-06 23:01] VITALS: BP 114/55; PULSE 51; O2SAT 92
[2024-06-06 23:01] LABS: Slide Review Reflex No
[2024-06-06 23:05] LABS: Albumin* 3.9 g/dL (3.3-5.0); Chloride* 107 mmol/L (96-114); Potassium* 3.9 mmol/L (3.6-5.1); Sodium* 134 mmol/L (135-149)
[2024-06-06 23:07] LABS: Anion Gap 6 mEq/L (7-15); Bilirubin Total* 0.9 mg/dL (0.1-1.5); Carbon Dioxide* 21 mmol/L (20-32); Creatinine* 0.7 mg/dL (0.5-1.5); Est. Creatinine Clearance* 53.14; Estimated Glomerular Filt Rate 92 ml/min; Lipase* 64 U/L (23-300)
[2024-06-06 23:08] LABS: Alanine Aminotransferase* 30 U/L (4-35); Alkaline Phosphatase* 101 U/L (40-150); Aspartate Amino Transferase* 43 U/L (12-35); Blood Urea Nitrogen* 12 mg/dL (7-30); Calcium* 10.4 mg/dL (8.4-10.6); Glucose* 127 mg/dL (60-115); Total Protein* 7.8 g/dL (6.0-8.3)
--- NOTE | 2024-06-06 23:13 | ED.ABDPAIN ---
HPI - Abdominal Pain General Date Seen: 06/06/24 Chief Complaint: Abdominal Pain Stated Complaint: epigastric pain Time Seen by Provider: 06/06/24 22:35 Source: patient Mode of arrival: EMS Limitations: no limitations History of Present Illness HPI narrative: Patient is a 74-year-old female presenting to the emergency department via EMS for abdominal pain and weakness. She states for the past few months he has been having issue the diarrhea and they have been unable to find a diagnosis. Recently she states she had an endoscopy and was noted to have pyloric stenosis. She states today she started having nausea and had a couple episodes of vomiting and having some abdominal pain around the umbilical region. States she has not had all these symptoms together before. Denies having abdominal pain like this before. Has had previous colectomy surgeries for early states cancers lesions at [facility] 4 years ago. States she was feeling weak this morning but has been ambulating around without issues up until the past few hours per she has been feeling much weaker and her is needs a helper to get around the house. She has had some mild lightheadedness but no dizziness. Denies chest pain or shortness of breath. States the pain is improved at this time after she was given fentanyl by EMS. She is also given some Zofran and her nausea has improved but still having some nausea at this time. No other concerns noted Related Data Home Medications ?Medication ?Instructions ?Recorded ?Confirmed atorvastatin 20 mg tablet 20 mg PO DAILY 06/29/23 06/06/24 omeprazole 20 mg capsule,delayed 20 mg PO 3XD 06/29/23 06/06/24 release rivaroxaban 20 mg tablet (Xarelto) 20 mg PO QPM 06/29/23 06/06/24 escitalopram oxalate 10 mg tablet 10 mg PO QAM 06/06/24 06/06/24 Allergies Allergy/AdvReac Type Severity Reaction Status Date / Time No Known Drug Allergies Allergy Verified 06/06/24 23:22 Review of Systems Status of ROS Reports: 10 or more systems reviewed and unremarkable except as noted in History and below PFSH [facility] Social History Smoking Status: Current every day smoker Do you use any of these nicotine containing products: None Second hand tobacco smoke exposure: No How often do you have a drink containing alcohol: never AUDIT-C Alcohol total score: 0 Non-prescribed substance use: denies use service: No Exam Narrative: Exam Narrative: Const: Well-nourished, Well-developed, in mild distress Eyes: PERRL, no conjunctival injection, and symmetrical lids HENT: Atraumatic external nose and ears. Moist mucous membranes. Neck: Symmetric, trachea midline, No thyromegaly. CVS: RRR, No murmurs or gallops. Peripheral pulses 2+ and equal in all extremities RESP: Unlabored respiratory effort. Clear to auscultation bilaterally. GI: Mild periumbilical tenderness, Nondistended, No rebound or guarding. MSK:Extremities w/o deformity, Normal Active ROM Skin: Warm, Dry. No rashes or lesions. Neuro: Normal Muscle tone, No focal neurological deficits. Psych: Awake, Alert, & Oriented x3. Appropriate mood and affect. Const: Vital Signs, click to edit/add: Vital Signs - 24 hr 06/06/24 22:40 Temperature 96.2 F L Pulse Rate [Pulse Oximeter] 50 L Respiratory Rate 16 Blood Pressure [Ri ght Upper Arm] 107/58 L Pulse Oximetry 95 Oxygen Delivery Me thod Room Air Course Vital Signs Vital signs: Initial Vital Signs Temperature 96.2 F L 06/06/24 22:40 Temperature Source Temporal Artery Scan 06/06/24 22:40 Pulse Rate 50 L 06/06/24 22:40 Pulse Rhythm Regular 06/06/24 22:40 Pulse Strength 3+ Normal 06/06/24 22:40 Respiratory Rate 16 06/06/24 22:40 Blood Pressure 107/58 L 06/06/24 22:40 Blood Pressure Mean 74 06/06/24 22:40 Blood Pressure Position Semi-Fowlers 06/06/24 22:40 Pulse Oximetry 95 06/06/24 22:40 Oxygen Delivery Method Room Air 06/06/24 22:40 Vital Signs Temperature 96.2 F L 06/06/24 22:40 Pulse Rate 50 L 06/06/24 22:40 Respiratory Rate 16 06/06/24 22:40 Blood Pressure 107/58 L 06/06/24 22:40 Pulse Oximetry 95 06/06/24 22:40 Oxygen Delivery Method Room Air 06/06/24 22:40 Temperature 96.2 F L 06/06/24 22:40 Pulse Rate 50 L 06/06/24 22:40 Respiratory Rate 16 06/06/24 22:40 Blood Pressure 107/58 L 06/06/24 22:40 Pulse Oximetry 95 06/06/24 22:40 Oxygen Delivery Method Room Air 06/06/24 22:40 Medications Administered Medications: Discontinued Medications Generic Name Dose Route Start Last Admin Trade Name Jose Antonio PRN Reason Stop Dose Admin Lactated Ringer's 1,000 mls @ 1,000 mls/hr 06/06/24 22:38 06/07/24 00:12 Lactated Ringers 1000 Ml IV 06/06/24 23:37 Infused .Q1H ONE Infusion Ondansetron HCl 4 mg 06/06/24 22:38 06/06/24 22:54 Ondansetron 2 Mg/Ml Inj IVP 06/06/24 22:39 4 mg ONCE ONE Administration MDM - Abdominal Pain MDM Narrative Medical decision making narrative: Patient is a 74-year-old female presenting to the emergency department for abdominal pain, weakness, diarrhea, vomiting. Diarrhea is a chronic issue. Will do a CT scan to better evaluate this abdominal discomfort. Pain seems to be more in the umbilical region but will do GI cocktail to see if that helps with her symptoms. Was still COVID/flu test. Has a previous abdominal surgeries and differential includes SBO due to that. Will also check for pancreatitis. The vomiting and diarrhea might be causing symptoms dehydration which could be causing her to feel weaker. Will rehydrate her. Ordering a CBC, CMP, lipase. Symptoms could also be an uncommon signs of ACS and will do EKG and troponin. Lab work all returned showing no concerning abnormalities. CT scan of the abdomen pelvis was done showing enteritis which could be causing her symptoms. Is there is dilation of the biliary tree which was seen and previous imaging and she is not ready having signs of biliary obstruction at this time said do not believe an ultrasound is necessary. Does have a new small volume ascites of uncertain etiology but this does not seem like it is causing her symptoms. She should follow up outpatient for this. COVID/flu/RSV negative. Troponin within normal limits. EKG shows no concerning findings do not believe repeat troponin is necessary as she has been having symptoms all day. She is bradycardic and she states heart rate usually in 70s but I symptoms seem to be more related to her abdomen and she is not having any lightheadedness and dizziness are do not believe this bradycardia is the cause of her symptoms. Her thinks she can handle being discharged does not need to be kept for observation. She will be discharged at this time. Lab Data Labs: Lab Results 06/06/24 06/06/24 06/06/24 Range/Units 22:38 22:45 23:40 WBC 9.19 (4.50-11.00) K/uL RBC 4.75 (4.00-5.20) m/uL Hgb 14.1 (12.0-16.0) gm/dL Hct 43.9 (33.0-51.0) % MCV 92 (80-100) fL MCH 30 (26-34) pg MCHC 32 (32-36) gm/dL RDW Coeff of Sam 13.3 (11.5-15.5) % Plt Count 195 (140-440) K/uL Neut % (Auto) 67.2 (42.0-72.0) % Lymph % (Auto) 23.9 (20-44) % [place] % (Auto) 6.4 (0.0-11.0) % Eos % (Auto) 1.1 (0.0-7.0) % Baso % (Auto) 0.4 (0.0-3.0) % Neut # (Auto) 6.17 (1.7-7.0) K/uL Lymph # (Auto) 2.20 (0.90-2.90) K/uL [place] # (Auto) 0.60 (0.00-0.90) K/UL Eos # (Auto) 0.10 (0.00-0.50) K/uL Baso # (Auto) 0.04 (0.00-0.30) K/uL Abs Immat Gran (auto) 0.09 (0.00-0.30) K/uL Imm/Tot Granulo (auto) 1.0 % Sodium 134 L (135-149) mmol/L Potassium 3.9 (3.6-5.1) mmol/L Chloride 107 (96-114) mmol/L Carbon Dioxide 21 (20-32) mmol/L Anion Gap 6 L (7-15) mEq/L BUN 12 (7-30) mg/dL Creatinine 0.7 (0.5-1.5) mg/dL Estimated Creat Clear 53.14 Estimated GFR 92 ml/min Glucose 127 H (60-115) mg/dL Calcium 10.4 (8.4-10.6) mg/dL Total Bilirubin 0.9 (0.1-1.5) mg/dL AST 43 H (12-35) U/L ALT 30 (4-35) U/L Alkaline Phosphatase 101 (40-150) U/L Total Protein 7.8 (6.0-8.3) g/dL Albumin 3.9 (3.3-5.0) g/dL Lipase 64 (23-300) U/L SARS-CoV-2 (PCR) Negative SARS-CoV-2 (Negative) Influenza Type A (PCR) Negative PCR FLU A (Negative) Influenza Type B (PCR) Negative PCR FLU B (Negative) POC Troponin I 0.01 (0.01-0.04) ng/ml Imaging Data CT scan abdomen pelvis: Attestation: I have reviewed the pertinent imaging results. Radiologist's impression: 1. Redemonstrated postsurgical changes of cholecystectomy with increased dilatation of the biliary tree in a pattern that is most suggestive of reservoir effect. However, if there are signs suggestive of a biliary obstruction, this could be further characterized with a right upper quadrant ultrasound. 2. There is hyperenhancement of a loop of small bowel in the left lower quadrant, which is suggestive of enteritis, which could be infectious or inflammatory in etiology. 3. New small volume ascites of uncertain etiology. Please note that all CT scans at this facility use dose modulation, iterative reconstruction, and/or weight-based dosing when appropriate to reduce radiation dose to as low as reasonably achievable. Dictated by Jose Bermudez MD @ 06/07/2024 12:07:16 AM ECG Data Attestation: I personally reviewed and interpreted this ECG as follows: Prior ECG tracings: not available for review Interpretation: Sinus bradycardia with a first-degree AV block, right bundle branch block, no ST or T-wave abnormalities. Discharge Plan Discharge Clinical Impression: Enteritis Patient Disposition: Home, Self-Care Condition: Stable Instructions: Enteritis (ED) Additional Instructions: Your symptoms might all be related to enteritis. There is a small amount of fluid with an your abdomen we are unsure where this fluid is from but it is small and is unlikely to be causing your acute problems. I do recommend close follow-up with the primary care provider. Make sure you stay well hydrated. Zofran prescribed through [facility]. Prescriptions: No Action atorvastatin 20 mg tablet 20 mg PO DAILY omeprazole 20 mg capsule,delayed release(DR/EC) 20 mg PO 3XD Xarelto 20 mg tablet 20 mg PO QPM escitalopram oxalate 10 mg tablet 10 mg PO QAM Follow Up/Referrals: Luci Salter DO [Primary Care Provider] - Stand Alone Forms: [email or web address] Info Instructions
[2024-06-06 23:31] VITALS: PULSE 58; O2SAT 93
[2024-06-06 23:32] VITALS: BP 136/64; PULSE 58; O2SAT 92
[2024-06-07] VITALS: PULSE 55; O2SAT 92
[2024-06-07 00:02] VITALS: BP 155/71; PULSE 57; O2SAT 93
[2024-06-07 00:17] LABS: PCR FLU A Negative PCR FLU A (Negative); PCR FLU B Negative PCR FLU B (Negative); SARS PCR* Negative SARS-CoV-2 (Negative)
[2024-06-07 00:30] VITALS: PULSE 55; O2SAT 92
[2024-06-07 00:31] VITALS: BP 155/75; PULSE 56; O2SAT 91
== END 2024-06-07 00:57 | disposition home or self-care (01) ==
PROVIDERS: Emergency Provider Student in an Organized Health Care Education/Training Program; PCP Family Medicine
DX: K52.9 Noninfective gastroenteritis and colitis, unspecified (principal)
CPT/HCPCS: 36415; 74177; 80053; 83690; 84484; 85025; 87631; 93005; 96361; 96374; 99283; 99284; 99285; J2405; J7120; Q9967

== ENCOUNTER 2024-10-29 13:34 | Outpatient (CLI) | payer OTHER, SELFPAY ==
--- NOTE | 2024-10-29 14:00 | CRLHL7_ITS ---
For Patients: As a result of the Century Cures Act, medical imaging exams and procedure reports are released immediately into your electronic medical record. You may view this report before your referring provider. If you have questions, please contact your health care provider. CLINICAL HISTORY: History of pelviureteric junction obstruction COMPARISON: CT 06/06/2024 TECHNIQUE: Tolentino scale and color Doppler images were acquired of the kidneys and urinary bladder. FINDINGS: The right renal pelvis measures 2.5 cm prevoid and 1.9 cm postvoid. Right proximal ureter measures 7 millimeters postvoid. No solid renal mass or stone. No cyst. No left-sided hydronephrosis. The right kidney measures 11.7cm in length and the left kidney measures 11.4cm in length. The renal cortex measures 13 millimeters on the right and 16 millimeters on the left. The urinary bladder appears normal. Color Doppler images reveal a normal appearance of both ureteral jets. There is no evidence of bladder calculi or diverticula. Prevoid bladder volume 112 cc. Postvoid bladder volume 5 cc. IMPRESSION: Right hydronephrosis/right proximal hydroureter which improves slightly postvoid, somewhat more prominent compared to June 06, 2024 CT but improved since 06/29/2023. Dictated by James Del Rosario MD @ 10/29/2024 3:28:16 PM (Electronically Signed)
== END 2024-10-29 13:35 | disposition home or self-care (01) ==
LOC: US 13:36
PROVIDERS: PCP Family Medicine; Visit Provider Urology
DX: N13.5 Crossing vessel and stricture of ureter without hydronephrosis (principal); N13.30 Unspecified hydronephrosis
CPT/HCPCS: 76770